=== PATIENT | male | born 1980 | race American Indian/Alaskan Native ===

== ENCOUNTER 2021-11-06 04:43 | Emergency (ER) | payer SELFPAY ==
[2021-11-06 06:07] LABS: Basophils # (Auto) 0.1 K/mm3 (0.0-0.1); Basophils % (Auto) 0.9 % (0.0-1.8); Eosinophils # (Auto) 0.1 K/mm3 (0.0-0.4); Eosinophils % (Auto) 1.3 % (0.0-4.3); Hematocrit 45.9 % (35.5-45.6); Hemoglobin 15.6 gm/dl (11.8-15.2); Lymphocytes # (Auto) 2.5 K/mm3 (1.2-5.4); Lymphocytes % (Auto) 25.8 % (13.4-35.0); Mean Corpuscular HGB Conc 34 % (32-34); Mean Corpuscular Volume 100 fl (84-94); Monocytes # (Auto) 0.8 K/mm3 (0.0-0.8); Monocytes % (Auto) 7.8 % (0.0-7.3); Platelet Count 279 K/mm3 (140-440); Red Cell Distribution Width 13.7 % (13.2-15.2)
[2021-11-06 06:23] LABS: Alanine Aminotransferase 34 units/L (7-56); Albumin 4.8 g/dL (3.9-5); BUN/Creatinine Ratio 13; Blood Urea Nitrogen 12 mg/dL (9-20); Calcium 9.8 mg/dL (8.4-10.2); Hemolysis Index 43
[2021-11-06] MEDS ORDERED: fentaNYL 100 MCG/2 ML INJ IV ONE (06:52)
[2021-11-06] MEDS ORDERED: ONDANSETRON 4 MG/2 ML INJ IV ONE (06:52)
[2021-11-06] MEDS ORDERED: SODIUM CHLORIDE 0.9% 1000 ML 1,000 ML IV ONE (06:52)
[2021-11-06] MEDS ORDERED: FAMOTIDINE 20 MG/2 ML INJ IV ONE (06:52)
[2021-11-06] MEDS ORDERED: LORazepam 2 MG/ML VIAL IV PRN (06:54)
[2021-11-06] MEDS ORDERED: MAGNESIUM SULFATE 2 GM/50 ML BAG IV ONE (06:55)
--- NOTE | 2021-11-06 06:58 | Emergency Department Report ---
HPI - General Chief Complaint: Abdominal Pain Time Seen by Provider: 11/06/21 06:48 - HPI HPI: Room 5 The patient is a 40-year-old male presenting with a chief complaint of abdominal pain. Patient admits to consuming approximately half a gallon of alcohol daily. Patient states for the past 3 days she has had a constant sharp pain in his right upper quadrant. Patient has nausea vomiting but denies diarrhea. Patient denies history of fever. Patient currently gets his abdominal pain a score of 8/10 ED Past Medical Hx - Past Medical History Previous Medical History?: Yes Additional medical history: Pancreatitis. ETOH abuse. seizures from ETOH withdrawal - Surgical History Past Surgical History?: No - Family History Family history: no significant - Social History Smoking Status: Current Every Day Smoker (Vape) Substance Use Type: None (Denies illicit drug use), Alcohol (1/2 gallon of alcohol daily) ED Review of Systems ROS: Stated complaint: EMESIS Other details as noted in HPI Constitutional: denies: fever Eyes: denies: eye pain ENT: denies: throat pain Respiratory: no symptoms reported Cardiovascular: denies: chest pain Endocrine: no symptoms reported Gastrointestinal: abdominal pain, nausea, vomiting. denies: diarrhea Genitourinary: denies: dysuria Musculoskeletal: denies: back pain Neurological: denies: headache Physical Exam - Physical Exam Vital Signs: Vital Signs 11/06/21 11/06/21 05:40 06:05 Temperature 98.1 F Pulse Rate 96 H 91 H Respiratory 18 15 Rate Blood Pressure 200/141 Blood Pressure 187/121 [Left] O2 Sat by Pulse 97 97 Oximetry Physical Exam: GENERAL: The patient is well-developed well-nourished male lying on stretcher not appearing to be in acute distress. [] HEENT: Normocephalic. Atraumatic. Extraocular motions are intact. Patient has moist mucous membranes. NECK: Supple. Trachea midline CHEST/LUNGS: Clear to auscultation. There is no respiratory distress noted. HEART/CARDIOVASCULAR: Regular. There is no tachycardia. There is no gallop rub or murmur. ABDOMEN: Abdomen is soft, with tenderness to palpation in the right upper quadrant and right lower quadrant. The remainder of the abdomen is soft and nontender to palpation. There is no rebound or guarding. Patient has normal bowel sounds. There is no abdominal distention. SKIN: There is no rash. There is no edema. There is no diaphoresis. NEURO: The patient is awake, alert, and oriented. The patient is cooperative. The patient has no focal neurologic deficits. The patient has normal speech. GCS 15 MUSCULOSKELETAL: There is no evidence of acute injury. ED Course Vital Signs 11/06/21 11/06/21 05:40 06:05 Temperature 98.1 F Pulse Rate 96 H 91 H Respiratory 18 15 Rate Blood Pressure 200/141 Blood Pressure 187/121 [Left] O2 Sat by Pulse 97 97 Oximetry ED Medical Decision Making - Lab Data Result diagrams: 11/06/21 05:48 11/06/21 05:48 Laboratory Tests 11/06/21 11/06/21 11/06/21 05:48 05:48 07:55 WBC 9.7 RBC 4.60 Hgb 15.6 H Hct 45.9 H MCV 100 H MCH 34 H MCHC 34 RDW 13.7 Plt Count 279 Lymph % (Auto) 25.8 [place] % (Auto) 7.8 H Eos % (Auto) 1.3 Baso % (Auto) 0.9 Lymph # (Auto) 2.5 [place] # (Auto) 0.8 Eos # (Auto) 0.1 Baso # (Auto) 0.1 Seg Neutrophils % 64.2 Seg Neutrophils # 6.2 Sodium 139 Potassium 4.5 Chloride 102.2 Carbon Dioxide 22 Anion Gap 19 BUN 12 Creatinine 0.9 Estimated GFR > 60 BUN/Creatinine Ratio 13 Glucose 108 H Calcium 9.8 Total Bilirubin 0.30 AST 27 ALT 34 Alkaline Phosphatase 115 Total Protein 7.6 Albumin 4.8 Albumin/Globulin Ratio 1.7 Lipase 21 Urine Color Straw Urine Turbidity Clear Urine pH 6.0 Ur Specific [place] 1.013 Urine Protein <15 mg/dl Urine Glucose (UA) Neg Urine Ketones Neg Urine Blood Sm Urine Nitrite Neg Urine Bilirubin Neg Urine Urobilinogen < 2.0 Ur Leukocyte Esterase Neg Urine WBC (Auto) < 1.0 Urine RBC (Auto) 3.0 U Epithel Cells (Auto) < 1.0 - Radiology Data Radiology results: report reviewed (CT abdomen pelvis), image reviewed (CT abdomen pelvis) [facility] [address] [place] [address] Cat Scan Report Signed Patient: OSKAR NORTH MR#: [id number] : 1980 Acct:[id number] Age/Sex: 40 / M ADM Date: 11/06/21 Loc: ED Attending Dr: Ordering Physician: DARIA ROMERO MD Date of Service: 11/06/21 Procedure(s): CT abdomen pelvis w con Accession Number(s): [id number] cc: DARIA ROMERO MD CT ABDOMEN AND PELVIS WITH CONTRAST INDICATION / CLINICAL INFORMATION: Right-sided abdominal pain OMNI 300 100 ML. TECHNIQUE: Axial CT images were obtained through the abdomen and pelvis after 100 cc of Omnipaque 300 IV contrast. Sagittal and coronal reformatted images. All CT scans at this location are performed using CT dose reduction for ALARA by means of automated exposure control. COMPARISON: None available. FINDINGS: LOWER CHEST: No significant abnormality. LIVER: No significant abnormality. GALLBLADDER: No significant abnormality. BILE DUCTS: No significant abnormality. PANCREAS: No significant abnormality. SPLEEN: No significant abnormality. ADRENALS: No significant abnormality. RIGHT KIDNEY and URETER: No significant abnormality. LEFT KIDNEY and URETER: No significant abnormality. STOMACH and SMALL BOWEL: No significant abnormality. COLON: No significant abnormality. APPENDIX: No significant abnormality. PERITONEUM: No free fluid. No free air. No fluid collection. LYMPH NODES: No significant adenopathy. AORTA and ARTERIES: No significant abnormality. IVC and VEINS: No significant abnormality. URINARY BLADDER: No significant abnormality. REPRODUCTIVE ORGANS: No significant abnormality. ADDITIONAL FINDINGS: None. SKELETAL SYSTEM: No significant abnormality. IMPRESSION: No acute process is identified. No clear explanation for right abdominal pain. Signer Name: Jose De Jesus Medrano Jr, MD Signed: 11/06/2021 7:58 AM Workstation Name: [id number] Transcribed By: TTR Dictated By: JOSE DE JESUS MEDRANO JR, MD Electronically Authenticated By: JOSE DE JESUS MEDRANO JR, MD Signed Date/Time: 11/06/21 0758 DD/ 0754 TD/TT: - Differential Diagnosis Pancreatitis, alcoholic hepatitis, cholecystitis, peptic ulcer disease Critical care attestation.: If time is entered above; I have spent that time in minutes in the direct care of this critically ill patient, excluding procedure time. ED Disposition Clinical Impression: Acute abdominal pain, Alcoholism Disposition: [address] [place] [address] Is pt being admited?: No Does the pt Need Aspirin: No Condition: Stable Referrals: MARK RIOJAS MD [Primary Care Provider] - 3-5 Days Time of Disposition: 12:51 (Awaiting acceptance)
[2021-11-06] MEDS: LORazepam 2 MG/ML VIAL IV PRN ×4 (07:54→20:04)
[2021-11-06] MEDS: THIAMINE 100 MG, FOLIC ACID 1 MG, MULTIPLE VITAMIN INJ, ADULT 10 ML in SODIUM CHLORIDE ... IV ONE ×2 (07:54→08:47)
--- NOTE | 2021-11-06 08:02 | Cat Scan Report ---
CT ABDOMEN AND PELVIS WITH CONTRAST INDICATION / CLINICAL INFORMATION: Right-sided abdominal pain OMNI 300 100 ML. TECHNIQUE: Axial CT images were obtained through the abdomen and pelvis after 100 cc of Omnipaque 300 IV contras t. Sagittal and coronal reformatted images. All CT scans at this location are performed using CT dose reduction for ALARA by means of automated exposure control. COMPARISON: None available. FINDINGS: LOWER CHEST: No significant abnormality. LIVER: No significant abnormality. GALLBLADDER: No significant abnormality. BILE DUCTS: No significant abnormality. PANCREAS: No significant abnormality. SPLEEN: No significant abnormality. ADRENALS: No significant abnormality. RIGHT KIDNEY and URETER: No significant abnormality. LEFT KIDNEY and URETER: No significant abnormality. STOMACH and SMALL BOWEL: No significant abnormality. COLON: No significant abnormality. APPENDIX: No significant abnormality. PERITONEUM: No free fluid. No free air. No fluid collection. LYMPH NODES: No significant adenopathy. AORTA and ARTERIES: No significant abnormality. IVC and VEINS: No significant abnormality. URINARY BLADDER: No significant abnormality. REPRODUCTIVE ORGANS: No significant abnormality. ADDITIONAL FINDINGS: None. SKELETAL SYSTEM: No significant abnormality. IMPRESSION: No acute process is identified. No clear explanation for right abdominal pain. Signer Name: Jose De Jesus Medrano Jr, MD Signed: 11/06/2021 7:58 AM Workstation Name: [id number]
[2021-11-06 08:18] LABS: Bilirubin,Urine NEG (Negative); Blood,Urine SM (Negative); Color,Urine Straw (Yellow); Protein,Urine <15 mg/dL mg/dL (Negative); Urobilinogen,Urine < 2.0 mg/dL (<2.0); WBC,Urine < 1.0 /HPF (0.0-6.0)
--- NOTE | 2021-11-06 11:50 | Consultation ---
History of Present Illness - Reason for Consult Consult date: 11/06/21 Reason for consult: Alcohol withdrawal - History of Present Psychiatric Illness ED Note: The patient is a 40-year-old male presenting with a chief complaint of abdominal pain. Patient admits to consuming approximately half a gallon of alcohol daily. Patient states for the past 3 days she has had a constant sharp pain in his right upper quadrant. Patient has nausea vomiting but denies diarrhea. Patient denies history of fever. Patient currently gets his abdominal pain a score of 8/10. The patient is a 40 year old male with history of depression, anxiety, PTSD, and alcohol use disorder. In my encounter with the patient, he is presents with moderate tremor. 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 The patient states states he started using alcohol 3 years now; he reports multiple inpatient admissions for detox and rehab x3. When asking why he drinks, he states " I stay depressed, it used to be fun when I started but not anymore." He states he last used alcohol last night. The patient is actively withdrawing; he reports history of seizures. He denies any current suicidal/homicidal ideation and denies hallucinations. PAST PSYCHIATRIC HISTORY Diagnoses:Depression, Anxiety, PTSD, Alcohol use disorder Suicide attempts or Self-harm behavior: Denies Prior psychiatric hospitalizations: Yes Substance Abuse history:Alcohol Previous psychiatric medications tried: Unknown Outpatient treatment:unknown PAST MEDICAL HISTORY: none reported Family Psychiatric History: None reported or documented SOCIAL HISTORY Marital Status: Single Living Arrangements: Lives with sister Employment Status: Unemployed Access to guns/weapons: Denies Education: 8th grade History of Abuse: none reported Legal History: none reported REVIEW OF SYSTEMS Constitutional: Negative for weight loss ENT: Negative for stridor Respiratory: Negative for cough or hemoptysis All other systems reviewed and are negative MENTAL STATUS EXAMINATION General Appearance and Behavior: Age appropriate, good hygiene, wearing appropriate clothes, poor eye contact, cooperative polite with questioning. Cooperation: Participating/engaged, guarded Psychomotor Behavior: unremarkable and within normal limits Mood: depressed Affect and affective range: congruent with mood Thought Process: goal directed Thought Content: reality oriented Speech: Normal volume, Regular rate and rhythm, Intellectual Functioning: Average Suicidal Ideation: Denies Homicidal Ideation: Denies Hallucinations: Denies Delusions: None Impulse Control: Normal Insight and Judgment: Limited insight and judgment, Memory: Normal, Attention: Normal, Orientation: Alert, oriented, Assessment and Plan (1) Major depressive disorder (2) Alcohol use disorder Current Visit: Yes Status: Acute Treatment Continue [facility] protocol Sitter: Per primary Medical: Per primary Disposition: Recommend acute inpatient psychiatric treatment. Case staffed with Dr. Bailey Will follow. Thank you Medications and Allergies Medications and Allergies Allergies Allergy/AdvReac Type Severity Reaction Status Date / Time No Known Allergies Allergy Verified 11/06/21 06:56 Active Meds: Active Medications Lorazepam (Lorazepam 2 Mg/Ml Vial) 2 mg IV Q1HR PRN PRN Reason: CIWA-Ar 8-15 Last Admin: 11/06/21 07:54 Dose: 2 mg Lorazepam (Lorazepam 2 Mg/Ml Vial) 4 mg IV Q1HR PRN PRN Reason: CIWA-Ar 16-25 Lorazepam (Lorazepam 2 Mg/Ml Vial) 4 mg IV Q15MIN PRN PRN Reason: CIWA-Ar >25 Mental Status Exam - Vital signs Last Vital Signs Temp 98.1 F 11/06/21 05:40 Pulse 86 11/06/21 07:30 Resp 15 11/06/21 07:30 BP 154/102 11/06/21 07:47 Pulse Ox 97 11/06/21 07:47 Results Result Diagrams: 11/06/21 05:48 11/06/21 05:48 Abnormal lab results 11/06/21 11/06/21 Range/Units 05:48 05:48 Hgb 15.6 H (11.8-15.2) gm/dl Hct 45.9 H (35.5-45.6) % MCV 100 H (84-94) fl MCH 34 H (28-32) pg [place] % (Auto) 7.8 H (0.0-7.3) % Glucose 108 H (75-100) mg/dL All other labs normal.
[2021-11-07] MEDS: LORazepam 2 MG/ML VIAL IV PRN ×6 (01:48→13:29)
[2021-11-07] MEDS ORDERED: ACETAMINOPHEN 325 MG TAB PO ONE (09:56)
--- NOTE | 2021-11-07 13:10 | Progress Note ---
Subjective - Reason for Consult Consult date: 11/07/21 Reason for consult: alcohol withdrawal - Chief Complaint Chief complaint: The patient was seen today. He states he is still hurting. No tremors noted. The patient denies any current suicidal/homicidal ideation and denies hallucinations. REVIEW OF SYSTEMS Constitutional: Negative for weight loss ENT: Negative for stridor Respiratory: Negative for cough or hemoptysis All other systems reviewed and are negative MENTAL STATUS EXAMINATION General Appearance and Behavior: Age appropriate, good hygiene, wearing appropriate clothes, poor eye contact, cooperative polite with questioning. Cooperation: Participating/engaged, guarded Psychomotor Behavior: unremarkable and within normal limits Mood: OK Affect and affective range: congruent with mood Thought Process: goal directed Thought Content: reality oriented Speech: Normal volume, Regular rate and rhythm, Intellectual Functioning: Average Suicidal Ideation: Denies Homicidal Ideation: Denies Hallucinations: Denies Delusions: None Impulse Control: Normal Insight and Judgment: Limited insight and judgment, Memory: Normal, Attention: Normal, Orientation: Alert, oriented, Assessment and Plan (1) Major depressive disorder (2) Alcohol use disorder Current Visit: Yes Status: Acute Treatment Sitter: Per primary Medical: Per primary Disposition: Do not recommend acute inpatient psychiatric treatment. risk assessor will provide patient with psychiatric inpatient resources. Case staffed with Dr. Bailey Will sign off. Thank you Medications and Allergies Mental Status Exam - Vital signs Last Vital Signs Temp 98.1 F 11/06/21 05:40 Pulse 86 11/07/21 00:16 Resp 16 11/07/21 10:15 BP 144/97 11/07/21 10:15 Pulse Ox 96 11/07/21 10:15
[2021-11-07 16:03] VITALS: BP 132/65
== END 2021-11-07 17:41 | disposition left against medical advice (07) ==
LOC: ED 04:43
DX: R10.11 Right upper quadrant pain (principal); F10.20 Alcohol dependence, uncomplicated; F17.200 Nicotine dependence, unspecified, uncomplicated
CPT/HCPCS: 36415; 74177; 80053; 81001; 83690; 85025; 96365; 96375; 96376; 99284; J2060; J2405; J3010; J3411; J3475; J3490; J7030; Q9967; 96361

== ENCOUNTER 2021-11-07 20:00 | Emergency (ER) | payer SELFPAY ==
[2021-11-07] MEDS ORDERED: SODIUM CHLORIDE 0.9% 1000 ML 1,000 ML IV ONE (20:52)
[2021-11-07 21:20] LABS: Basophils # (Auto) 0.1 K/mm3 (0.0-0.1); Basophils % (Auto) 0.6 % (0.0-1.8); Eosinophils # (Auto) 0.1 K/mm3 (0.0-0.4); Eosinophils % (Auto) 1.3 % (0.0-4.3); Hemoglobin 16.1 gm/dl (11.8-15.2); Lymphocytes # (Auto) 3.3 K/mm3 (1.2-5.4); Mean Corpuscular HGB Conc 34 % (32-34); Mean Corpuscular Volume 101 fl (84-94); Monocytes # (Auto) 0.7 K/mm3 (0.0-0.8); Monocytes % (Auto) 7.4 % (0.0-7.3); Platelet Count 280 K/mm3 (140-440); Red Blood Count 4.77 M/mm3 (3.65-5.03); Red Cell Distribution Width 13.4 % (13.2-15.2)
[2021-11-07 21:37] LABS: Alanine Aminotransferase 29 units/L (7-56); Albumin 4.4 g/dL (3.9-5); BUN/Creatinine Ratio 14; Blood Urea Nitrogen 14 mg/dL (9-20); Calcium 9.4 mg/dL (8.4-10.2); Hemolysis Index 8
--- NOTE | 2021-11-07 23:05 | Emergency Department Report ---
ED Psych HPI - General Chief Complaint: Psych Stated Complaint: MH/ETOH Time Seen by Provider: 11/07/21 20:52 Source: EMS Mode of arrival: Ambulatory - History of Present Illness Initial Comments: pt was seen at [facility] ED and discharged x2 in the last 24 hours, ETOH, pt now stating SI denies HI Complaint: suicidal ideation, feels depressed -: days(s) Associated Psychiatric Symptoms: suicidal ideation History of same: Yes Quality: constant Worsens With: achohol Context: recent alcohol abuse If Self Harm: admits thoughts of - Related Data Previous Rx's Medication Instructions Recorded Last Taken Type Sertraline [Zoloft] 50 mg PO QDAY #30 11/11/21 Unknown Rx hydrOXYzine PAMOATE [Vistaril] 50 mg PO BID PRN #60 capsule 11/11/21 Unknown Rx Allergies Allergy/AdvReac Type Severity Reaction Status Date / Time No Known Allergies Allergy Verified 11/06/21 06:56 ED Review of Systems ROS: Stated complaint: MH/ETOH Other details as noted in HPI Constitutional: denies: chills, fever Eyes: denies: eye pain, eye discharge, vision change ENT: denies: ear pain, throat pain Respiratory: denies: cough, shortness of breath, wheezing Cardiovascular: denies: chest pain, palpitations Endocrine: no symptoms reported Gastrointestinal: denies: abdominal pain, nausea, diarrhea Genitourinary: denies: urgency, dysuria Musculoskeletal: denies: back pain, joint swelling, arthralgia Skin: denies: rash, lesions Neurological: denies: headache, weakness, paresthesias Psychiatric: denies: anxiety, depression Hematological/Lymphatic: denies: easy bleeding, easy bruising ED Past Medical Hx - Past Medical History Previous Medical History?: Yes Additional medical history: Pancreatitis. ETOH abuse. seizures from ETOH withdrawal - Social History Smoking Status: Current Every Day Smoker Substance Use Type: Alcohol - Medications Home Medications: Home Medications Medication Instructions Recorded Confirmed Last Taken Type Sertraline [Zoloft] 50 mg PO QDAY #30 11/11/21 Unknown Rx hydrOXYzine PAMOATE [Vistaril] 50 mg PO BID PRN #60 capsule 11/11/21 Unknown Rx ED Physical Exam - General Limitations: No Limitations General appearance: alert, appears intoxicated - Head Head exam: Present: atraumatic, normocephalic - Eye Eye exam: Present: normal appearance - ENT ENT exam: Present: mucous membranes moist - Neck Neck exam: Present: normal inspection - Respiratory Respiratory exam: Present: normal lung sounds bilaterally. Absent: respiratory distress - Cardiovascular Cardiovascular Exam: Present: regular rate, tachycardia. Absent: systolic murmur, diastolic murmur, rubs, gallop - GI/Abdominal GI/Abdominal exam: Present: soft, normal bowel sounds - Rectal Rectal exam: Present: deferred - Extremities Exam Extremities exam: Present: normal inspection - Back Exam Back exam: Present: normal inspection - Neurological Exam Neurological exam: Present: alert, oriented X3 - Psychiatric Psychiatric exam: Present: depressed - Skin Skin exam: Present: warm, dry, intact, normal color. Absent: rash ED Course Vital Signs 11/07/21 11/07/21 11/07/21 20:17 21:01 21:15 Temperature 99.1 F Pulse Rate 124 H 109 H 100 H Respiratory 18 19 21 Rate Blood Pressure 149/106 135/99 121/89 Blood Pressure 121/89 [Left] O2 Sat by Pulse 98 95 96 Oximetry 11/07/21 11/07/21 11/07/21 21:31 21:45 22:01 Temperature Pulse Rate 99 H 93 H 93 H Respiratory 23 21 21 Rate Blood Pressure 124/91 128/91 125/85 Blood Pressure [Left] O2 Sat by Pulse 93 95 94 Oximetry 11/07/21 11/07/21 11/07/21 22:15 22:31 22:45 Temperature Pulse Rate 99 H 96 H 93 H Respiratory 19 20 19 Rate Blood Pressure 130/88 135/88 137/99 Blood Pressure [Left] O2 Sat by Pulse 94 95 97 Oximetry 11/07/21 11/07/21 11/07/21 23:01 23:15 23:31 Temperature Pulse Rate 91 H 94 H 98 H Respiratory 17 17 17 Rate Blood Pressure 147/95 151/85 122/77 Blood Pressure [Left] O2 Sat by Pulse 96 96 95 Oximetry 11/07/21 11/08/21 11/08/21 23:45 00:01 00:15 Temperature Pulse Rate 99 H 97 H 96 H Respiratory 16 17 21 Rate Blood Pressure 131/76 116/76 117/81 Blood Pressure [Left] O2 Sat by Pulse 95 95 Oximetry 11/08/21 11/08/21 11/08/21 00:31 00:52 01:06 Temperature Pulse Rate 97 H Respiratory 15 Rate Blood Pressure 131/92 124/97 141/90 Blood Pressure [Left] O2 Sat by Pulse Oximetry 11/08/21 11/08/21 11/08/21 01:21 01:36 01:51 Temperature Pulse Rate Respiratory Rate Blood Pressure 134/86 130/82 121/85 Blood Pressure [Left] O2 Sat by Pulse Oximetry 11/08/21 11/08/21 11/08/21 02:06 02:21 02:36 Temperature Pulse Rate Respiratory Rate Blood Pressure 127/83 140/91 123/90 Blood Pressure [Left] O2 Sat by Pulse Oximetry 11/08/21 11/08/21 11/08/21 02:51 06:00 06:16 Temperature Pulse Rate 106 H 99 H Respiratory 13 18 Rate Blood Pressure 126/83 160/115 88/66 Blood Pressure [Left] O2 Sat by Pulse 97 94 Oximetry 11/08/21 11/08/21 11/08/21 06:30 06:46 07:00 Temperature Pulse Rate 101 H 106 H 103 H Respiratory 16 16 15 Rate Blood Pressure 88/66 88/66 88/66 Blood Pressure [Left] O2 Sat by Pulse 94 94 94 Oximetry 11/08/21 11/08/21 11/08/21 07:16 07:30 07:46 Temperature Pulse Rate 103 H 101 H 86 Respiratory 19 16 15 Rate Blood Pressure 147/103 147/103 147/103 Blood Pressure [Left] O2 Sat by Pulse 93 95 96 Oximetry 11/08/21 11/08/21 11/08/21 08:00 08:16 08:30 Temperature Pulse Rate 92 H 103 H 102 H Respiratory 19 17 17 Rate Blood Pressure 124/64 124/64 124/64 Blood Pressure [Left] O2 Sat by Pulse 94 93 93 Oximetry 11/08/21 11/08/21 11/08/21 08:46 09:00 09:16 Temperature Pulse Rate Respiratory 13 16 18 Rate Blood Pressure 124/64 161/115 161/115 Blood Pressure [Left] O2 Sat by Pulse 94 96 93 Oximetry 11/08/21 11/08/21 11/08/21 09:30 09:46 10:00 Temperature Pulse Rate Respiratory 21 10 L 13 Rate Blood Pressure 161/115 161/115 163/134 Blood Pressure [Left] O2 Sat by Pulse 94 97 97 Oximetry 11/08/21 11/08/21 11/08/21 10:16 10:30 10:46 Temperature Pulse Rate Respiratory 11 L 17 14 Rate Blood Pressure 163/134 163/134 163/134 Blood Pressure [Left] O2 Sat by Pulse 95 95 92 Oximetry 11/08/21 11/08/21 11/08/21 11:00 11:16 11:30 Temperature Pulse Rate Respiratory 14 Rate Blood Pressure 153/78 153/78 153/78 Blood Pressure [Left] O2 Sat by Pulse 93 94 95 Oximetry 11/08/21 11/08/21 11/08/21 11:49 12:00 12:16 Temperature Pulse Rate 96 H 105 H Respiratory 21 Rate Blood Pressure 153/78 134/112 134/112 Blood Pressure [Left] O2 Sat by Pulse 92 98 Oximetry 11/08/21 11/08/21 11/08/21 12:36 12:37 12:46 Temperature Pulse Rate 113 H 117 H Respiratory 18 Rate Blood Pressure 160/99 160/99 Blood Pressure 120/79 [Left] O2 Sat by Pulse 95 99 92 Oximetry 11/08/21 11/08/21 11/08/21 13:00 13:18 13:30 Temperature Pulse Rate 99 H Respiratory 20 Rate Blood Pressure 147/88 147/88 109/77 Blood Pressure [Left] O2 Sat by Pulse 90 89 87 Oximetry 11/08/21 11/08/21 11/08/21 13:52 14:01 14:16 Temperature Pulse Rate Respiratory Rate Blood Pressure 109/77 109/77 109/77 Blood Pressure [Left] O2 Sat by Pulse 99 60 L Oximetry 11/08/21 11/08/21 11/08/21 14:30 14:54 15:00 Temperature Pulse Rate Respiratory Rate Blood Pressure 109/77 109/77 109/77 Blood Pressure [Left] O2 Sat by Pulse 71 L Oximetry 11/08/21 11/08/21 11/08/21 15:15 17:35 17:46 Temperature Pulse Rate 95 H Respiratory 14 Rate Blood Pressure 109/77 109/77 Blood Pressure [Left] O2 Sat by Pulse 94 94 Oximetry 11/08/21 11/08/21 11/08/21 18:00 18:30 18:46 Temperature Pulse Rate 94 H 97 H Respiratory 14 21 Rate Blood Pressure 134/81 134/81 134/81 Blood Pressure [Left] O2 Sat by Pulse 94 96 96 Oximetry 11/08/21 11/08/21 11/08/21 19:00 19:16 19:30 Temperature Pulse Rate Respiratory Rate Blood Pressure 134/81 134/81 134/81 Blood Pressure [Left] O2 Sat by Pulse 94 94 94 Oximetry 11/08/21 11/08/21 11/08/21 19:46 20:00 20:16 Temperature Pulse Rate Respiratory Rate Blood Pressure 134/81 134/81 134/81 Blood Pressure [Left] O2 Sat by Pulse 94 94 94 Oximetry 11/08/21 11/08/21 11/08/21 20:30 20:46 21:00 Temperature Pulse Rate Respiratory Rate Blood Pressure 134/81 134/81 95/46 Blood Pressure [Left] O2 Sat by Pulse 92 94 94 Oximetry 11/08/21 11/08/21 11/08/21 21:16 21:30 21:46 Temperature Pulse Rate Respiratory Rate Blood Pressure Blood Pressure [Left] O2 Sat by Pulse 93 95 95 Oximetry 11/08/21 11/08/21 11/08/21 22:00 22:16 22:30 Temperature Pulse Rate Respiratory Rate Blood Pressure Blood Pressure [Left] O2 Sat by Pulse 95 96 94 Oximetry 11/08/21 11/08/21 11/08/21 22:46 23:00 23:16 Temperature Pulse Rate Respiratory Rate Blood Pressure Blood Pressure [Left] O2 Sat by Pulse 88 94 94 Oximetry 11/08/21 11/08/21 11/09/21 23:30 23:46 00:00 Temperature Pulse Rate Respiratory Rate Blood Pressure Blood Pressure [Left] O2 Sat by Pulse 94 92 95 Oximetry 11/09/21 11/09/21 11/09/21 00:16 00:30 00:46 Temperature Pulse Rate Respiratory Rate Blood Pressure Blood Pressure [Left] O2 Sat by Pulse 92 94 94 Oximetry 11/09/21 11/09/21 11/09/21 01:00 01:16 01:30 Temperature Pulse Rate Respiratory Rate Blood Pressure Blood Pressure [Left] O2 Sat by Pulse 95 92 92 Oximetry 11/09/21 11/09/21 11/09/21 01:46 02:00 02:16 Temperature Pulse Rate Respiratory Rate Blood Pressure 44/18 44/18 Blood Pressure [Left] O2 Sat by Pulse 96 92 96 Oximetry 11/09/21 11/09/21 11/09/21 02:30 02:46 03:00 Temperature Pulse Rate Respiratory Rate Blood Pressure 44/18 44/18 44/18 Blood Pressure [Left] O2 Sat by Pulse 95 94 90 Oximetry 11/09/21 11/09/21 11/09/21 03:16 03:30 03:46 Temperature Pulse Rate Respiratory Rate Blood Pressure 44/18 44/18 44/18 Blood Pressure [Left] O2 Sat by Pulse 92 94 93 Oximetry 11/09/21 11/09/21 11/09/21 03:57 04:00 04:02 Temperature 98.3 F Pulse Rate 80 Respiratory 16 Rate Blood Pressure 148/97 Blood Pressure 109/88 [Left] O2 Sat by Pulse 98 96 98 Oximetry 11/09/21 11/09/21 11/09/21 04:16 04:30 04:46 Temperature Pulse Rate Respiratory Rate Blood Pressure 148/97 148/97 148/97 Blood Pressure [Left] O2 Sat by Pulse 92 94 95 Oximetry 11/09/21 11/09/21 11/09/21 05:00 05:16 05:30 Temperature Pulse Rate Respiratory Rate Blood Pressure 156/105 156/105 156/105 Blood Pressure [Left] O2 Sat by Pulse 96 89 94 Oximetry 11/09/21 11/09/21 11/09/21 05:46 06:00 06:16 Temperature Pulse Rate Respiratory Rate Blood Pressure 156/105 146/109 146/109 Blood Pressure [Left] O2 Sat by Pulse 88 94 94 Oximetry 11/09/21 11/09/21 11/09/21 06:30 06:46 06:55 Temperature 98.6 F Pulse Rate 80 Respiratory 16 Rate Blood Pressure 146/109 146/109 Blood Pressure 134/88 [Left] O2 Sat by Pulse 89 94 97 Oximetry 11/09/21 11/10/21 11/10/21 20:35 03:09 09:40 Temperature 98.6 F 97.8 F 97.2 F L Pulse Rate 117 H 89 70 Respiratory 18 18 16 Rate Blood Pressure Blood Pressure 154/119 149/111 121/79 [Left] O2 Sat by Pulse 95 95 100 Oximetry 11/10/21 11/11/21 11/11/21 20:22 06:04 09:03 Temperature Pulse Rate 100 H Respiratory 18 18 Rate Blood Pressure Blood Pressure 144/115 [Left] O2 Sat by Pulse 100 98 Oximetry 11/11/21 11:59 Temperature 98.6 F Pulse Rate 87 Respiratory 20 Rate Blood Pressure Blood Pressure 160/88 [Left] O2 Sat by Pulse 98 Oximetry ED Medical Decision Making - Lab Data Result diagrams: 11/07/21 21:06 11/07/21 21:06 Critical care attestation.: If time is entered above; I have spent that time in minutes in the direct care of this critically ill patient, excluding procedure time. ED Disposition Clinical Impression: Alcohol abuse Depression Qualifiers: Depression Type: unspecified Qualified Code(s): F32.A - Depression, unspecified Disposition: 01 HOME / SELF CARE / HOMELESS Is pt being admited?: No Does the pt Need Aspirin: No Condition: Stable Instructions: Alcohol Use Disorder, Alcohol Abuse and Dependence Information, Adult, Living With Depression, Substance Use Disorder and Mental Illness, Alcohol Abuse and Nutrition Additional Instructions: In case of an emergency, please contact the following numbers: [place] Crisis and Access Line: Number: Crisis Text Line: (Text START) Number: 893546 Suicide Prevention Line: Number: Emergency Number: 911 SUBSTANCE ABUSE PROGRAMS: [facility]: Location: [place], [place] [employer]! Address: [address] [place] [address] [facility] Recovery: Address: [address] [place] [address] [facility] Rehabilitation: Address: [address] [place] [address] [facility] Community: Address: [address] [place] [address] [facility] Address: [address] [place] [address]. Please contact above numbers to attempt placement into free based program. Medicaid Programs: [facility]: Address: [address] [place] [address] [facility]: Address: [address] [place] [id number] Professional and Agency Contacts To help [facility] (27/01) [place] Crisis Line: Suicide Prevention Line: Crisis Text Line: Text START to 905253 Emergency: 911 Outpatient COMMUNITY Behavioral Health Resources: MEL[facility]OR[place]: [facility] [address] [place], [place] [address] [place]: [facility] [address] [place] [address] Friday thru Friday - 8am - 5pm Call to schedule an assessment for mental health and substance abuse programs [facility] Address: [address] [place] [address] Friday thru Friday- 7am-2pm [facility] Address: [address] [place] [address] Friday thru Friday: 8:30AM-5PM OUTPATIENT MENTAL HEALTH RESOURCES [facility], [facility] Kaden Dorado MD: [address] [place] [address], [address] [facility] [address] [place] [address] [place] [address] [facility]: [facility] [address] [place] [address] [place] [address] [phone] [facility]: [facility] Healthcare: [address] [place] [address] [address] [place] [address] [place] [address] [facility] [address] [facility]: Bradley Lopez MD: [address] [facility] [address] [facility] [address] [facility]: [address] [place] [address] [phone] [place] CRISIS AND ACCESS LINE: Prescriptions: hydrOXYzine PAMOATE [Vistaril] 50 mg PO BID PRN #60 capsule PRN Reason: Anxiety Sertraline [Zoloft] 50 mg PO QDAY #30 Referrals: MARK RIOJAS MD [Primary Care Provider] - 3-5 Days
[2021-11-08] MEDS ORDERED: LORazepam 2 MG/ML VIAL IV PRN ×2 (05:48)
[2021-11-08 08:18] LABS: Bilirubin,Urine NEG (Negative); Blood,Urine SM (Negative); Color,Urine Yellow (Yellow); Mucus,Urine FEW /HPF; Protein,Urine <15 mg/dL mg/dL (Negative); Urobilinogen,Urine < 2.0 mg/dL (<2.0); WBC,Urine < 1.0 /HPF (0.0-6.0)
[2021-11-08 08:24] LABS: Amphetamine Screen,Urine Negative; Benzodiazepines Screen,Urine Negative; Cocaine Screen,Urine Negative; Methadone Screen,Urine Negative; Opiate Screen,Urine Negative
[2021-11-08 08:45] LABS: Cannabinoid Screen,Urine Positive
--- NOTE | 2021-11-08 09:52 | Consultation ---
History of Present Illness - Reason for Consult Consult date: 11/08/21 Reason for consult: suicidal - History of Present Psychiatric Illness The patient is a 40 year old male with depression, anxiety, PTSD, and alcohol use disorder who present to the ED with suicidal ideation. The patient was discharged yesterday. He states he stated using alcohol post discharge and h aving suicidal ideation " I want to kill myself," he has no plan. He denies hallucinations. PAST PSYCHIATRIC HISTORY Diagnoses:Depression, Anxiety, PTSD, Alcohol use disorder Suicide attempts or Self-harm behavior: Denies Prior psychiatric hospitalizations: Yes Substance Abuse history:Alcohol Previous psychiatric medications tried: Unknown Outpatient treatment:unknown PAST MEDICAL HISTORY: none reported Family Psychiatric History: None reported or documented SOCIAL HISTORY Marital Status: Single Living Arrangements: Lives with sister Employment Status: Unemployed Access to guns/weapons: Denies Education: 8th grade History of Abuse: none reported Legal History: none reported REVIEW OF SYSTEMS Constitutional: Negative for weight loss ENT: Negative for stridor Respiratory: Negative for cough or hemoptysis All other systems reviewed and are negative MENTAL STATUS EXAMINATION General Appearance and Behavior: Age appropriate, good hygiene, wearing appropriate clothes, poor eye contact, cooperative polite with questioning. Cooperation: Participating/engaged, guarded Psychomotor Behavior: unremarkable and within normal limits Mood: Depressed Affect and affective range: congruent with mood Thought Process: Goal directed Thought Content: Suicidal Speech: Normal volume, Regular rate and rhythm, Intellectual Functioning: Average Suicidal Ideation: Yes Homicidal Ideation: Denies Hallucinations: Denies Delusions: None Impulse Control: Normal Insight and Judgment: Limited insight and judgment, Memory: Normal, Attention: Normal, Orientation: Alert, oriented, Assessment and Plan (1) Major depressive disorder (2) Alcohol use disorder Current Visit: Yes Status: Acute Treatment 1013 Start [id number] po BID Continue CIWA protocol Sitter: Per primary Medical: Per primary Disposition: Recommend acute inpatient psychiatric treatment. Case staffed with Dr. Bailey Will follow. Thank you Medications and Allergies Medications and Allergies Allergies Allergy/AdvReac Type Severity Reaction Status Date / Time No Known Allergies Allergy Verified 11/06/21 06:56 Active Meds: Active Medications Lorazepam (Lorazepam 2 Mg/Ml Vial) 2 mg IV Q1H PRN PRN Reason: CIWA-Ar 8-15 Lorazepam (Lorazepam 2 Mg/Ml Vial) 4 mg IV Q1H PRN PRN Reason: CIWA-Ar 16-25 Lorazepam (Lorazepam 2 Mg/Ml Vial) 4 mg IV Q15MIN PRN PRN Reason: CIWA-Ar >25 Mental Status Exam - Vital signs Last Vital Signs Temp 99.1 F 11/07/21 20:17 Pulse 106 H 11/08/21 06:00 Resp 13 11/08/21 06:00 BP 160/115 11/08/21 06:00 Pulse Ox 97 11/08/21 06:00 Results Result Diagrams: 11/07/21 21:06 11/07/21 21:06 Abnormal lab results 11/07/21 11/07/21 11/07/21 Range/Units 21:06 21:06 21:06 Hgb 16.1 H (11.8-15.2) gm/dl Hct 48.0 H (35.5-45.6) % MCV 101 H (84-94) fl MCH 34 H (28-32) pg [place] % (Auto) 7.4 H (0.0-7.3) % Potassium 3.4 L D (3.6-5.0) mmol/L Glucose 115 H (75-100) mg/dL Plasma/Serum Alcohol 0.25 H (0-0.07) % All other labs normal.
[2021-11-08] MEDS ORDERED: ONDANSETRON 4 MG ODT TAB PO PRN (12:01)
[2021-11-08] MEDS: LORazepam 2 MG/ML VIAL IV PRN ×2 (12:11→13:53)
[2021-11-08] MEDS: GABAPENTIN 100 MG CAP PO SCH ×2 (12:12→23:55)
[2021-11-08] MEDS ORDERED: POTASSIUM CHLORIDE ER 20 MEQ TAB PO ONE (12:44)
--- NOTE | 2021-11-08 12:46 | Event Note ---
Date: 11/08/21 The patient was evaluated in the emergency department for symptoms described in the history of present illness. He/she was evaluated in the context of the global COVID-19 pandemic, which necessitated consideration that the patient might be at risk for infection with the virus that causes COVID-19. Institutional protocols and algorithms that pertain to the evaluation of patients at risk for COVID-19 are in a state of rapid change based on information released by regulatory bodies including the CDC and federal and state organizations. These policies and algorithms were followed during the patient's care in the emergency department. Please note that these policies, procedures and recommendations changed on a rapid basis. Laboratory studies, vital signs, nursing documentation, ER documentation, and psychiatric documentation are reviewed and appreciated. Nursing team reports no acute events this morning or concerns. The patient is awake and ambulating and is mildly anxious. He is currently on the alcohol withdrawal protocol. Tachycardia likely secondary to mild anxiety, dehydration, as well as mild alcohol withdrawal. He has not had any seizures while here in the emergency room. Oral potassium repletion has been ordered. Multivitamins have been ordered. Have requested that the lab add on Tylenol and aspirin level. We will follow these up The patient was deemed medically suitable for psychiatric disposition and placement during his initial ER evaluation. The patient continues to remain medically suitable for psychiatric placement and disposition. He is currently pending psychiatric placement. Vital Signs 11/07/21 11/07/21 11/07/21 20:17 21:01 21:15 Temperature 99.1 F Pulse Rate 124 H 109 H 100 H Respiratory 18 19 21 Rate Blood Pressure 149/106 135/99 121/89 Blood Pressure 121/89 [Left] O2 Sat by Pulse 98 95 96 Oximetry 11/07/21 11/07/21 11/07/21 21:31 21:45 22:01 Temperature Pulse Rate 99 H 93 H 93 H Respiratory 23 21 21 Rate Blood Pressure 124/91 128/91 125/85 Blood Pressure [Left] O2 Sat by Pulse 93 95 94 Oximetry 11/07/21 11/07/21 11/07/21 22:15 22:31 22:45 Temperature Pulse Rate 99 H 96 H 93 H Respiratory 19 20 19 Rate Blood Pressure 130/88 135/88 137/99 Blood Pressure [Left] O2 Sat by Pulse 94 95 97 Oximetry 11/07/21 11/07/21 11/07/21 23:01 23:15 23:31 Temperature Pulse Rate 91 H 94 H 98 H Respiratory 17 17 17 Rate Blood Pressure 147/95 151/85 122/77 Blood Pressure [Left] O2 Sat by Pulse 96 96 95 Oximetry 11/07/21 11/08/21 11/08/21 23:45 00:01 00:15 Temperature Pulse Rate 99 H 97 H 96 H Respiratory 16 17 21 Rate Blood Pressure 131/76 116/76 117/81 Blood Pressure [Left] O2 Sat by Pulse 95 95 Oximetry 11/08/21 11/08/21 11/08/21 00:31 00:52 01:06 Temperature Pulse Rate 97 H Respiratory 15 Rate Blood Pressure 131/92 124/97 141/90 Blood Pressure [Left] O2 Sat by Pulse Oximetry 11/08/21 11/08/21 11/08/21 01:21 01:36 01:51 Temperature Pulse Rate Respiratory Rate Blood Pressure 134/86 130/82 121/85 Blood Pressure [Left] O2 Sat by Pulse Oximetry 11/08/21 11/08/21 11/08/21 02:06 02:21 02:36 Temperature Pulse Rate Respiratory Rate Blood Pressure 127/83 140/91 123/90 Blood Pressure [Left] O2 Sat by Pulse Oximetry 11/08/21 11/08/21 11/08/21 02:51 06:00 06:16 Temperature Pulse Rate 106 H 99 H Respiratory 13 18 Rate Blood Pressure 126/83 160/115 88/66 Blood Pressure [Left] O2 Sat by Pulse 97 94 Oximetry 11/08/21 11/08/21 11/08/21 06:30 06:46 07:00 Temperature Pulse Rate 101 H 106 H 103 H Respiratory 16 16 15 Rate Blood Pressure 88/66 88/66 88/66 Blood Pressure [Left] O2 Sat by Pulse 94 94 94 Oximetry 11/08/21 11/08/21 11/08/21 07:16 07:30 07:46 Temperature Pulse Rate 103 H 101 H 86 Respiratory 19 16 15 Rate Blood Pressure 147/103 147/103 147/103 Blood Pressure [Left] O2 Sat by Pulse 93 95 96 Oximetry 11/08/21 11/08/21 11/08/21 08:00 08:16 08:30 Temperature Pulse Rate 92 H 103 H 102 H Respiratory 19 17 17 Rate Blood Pressure 124/64 124/64 124/64 Blood Pressure [Left] O2 Sat by Pulse 94 93 93 Oximetry 11/08/21 11/08/21 11/08/21 08:46 09:00 09:16 Temperature Pulse Rate Respiratory 13 16 18 Rate Blood Pressure 124/64 161/115 161/115 Blood Pressure [Left] O2 Sat by Pulse 94 96 93 Oximetry 11/08/21 11/08/21 11/08/21 09:30 09:46 12:37 Temperature Pulse Rate 117 H Respiratory 21 10 L 18 Rate Blood Pressure 161/115 161/115 Blood Pressure 120/79 [Left] O2 Sat by Pulse 94 97 99 Oximetry Lab Results 11/07/21 11/07/21 11/07/21 Range/Units 21:06 21:06 21:06 WBC 9.6 (4.5-11.0) K/mm3 RBC 4.77 (3.65-5.03) M/mm3 Hgb 16.1 H (11.8-15.2) gm/dl Hct 48.0 H (35.5-45.6) % MCV 101 H (84-94) fl MCH 34 H (28-32) pg MCHC 34 (32-34) % RDW 13.4 (13.2-15.2) % Plt Count 280 (140-440) K/mm3 Lymph % (Auto) 34.0 (13.4-35.0) % Ray % (Auto) 7.4 H (0.0-7.3) % Eos % (Auto) 1.3 (0.0-4.3) % Baso % (Auto) 0.6 (0.0-1.8) % Lymph # (Auto) 3.3 (1.2-5.4) K/mm3 Ray # (Auto) 0.7 (0.0-0.8) K/mm3 Eos # (Auto) 0.1 (0.0-0.4) K/mm3 Baso # (Auto) 0.1 (0.0-0.1) K/mm3 Seg Neutrophils % 56.7 (40.0-70.0) % Seg Neutrophils # 5.5 (1.8-7.7) K/mm3 Sodium 140 (137-145) mmol/L Potassium 3.4 L D (3.6-5.0) mmol/L Chloride 103.3 (98-107) mmol/L Carbon Dioxide 23 (22-30) mmol/L Anion Gap 17 mmol/L BUN 14 (9-20) mg/dL Creatinine 1.0 (0.8-1.3) mg/dL Estimated GFR > 60 ml/min BUN/Creatinine Ratio 14 % Glucose 115 H (75-100) mg/dL Calcium 9.4 (8.4-10.2) mg/dL Total Bilirubin 0.30 (0.1-1.2) mg/dL AST 21 (5-40) units/L ALT 29 (7-56) units/L Alkaline Phosphatase 104 (35-129) units/L Total Protein 7.5 (6.3-8.2) g/dL Albumin 4.4 (3.9-5) g/dL Albumin/Globulin Ratio 1.4 % Urine Color (Yellow) Urine Turbidity (Clear) Urine pH (5.0-7.0) Ur Specific Stewart (1.003-1.030) Urine Protein (Negative) mg/dL Urine Glucose (UA) (Negative) mg/dL Urine Ketones (Negative) mg/dL Urine Blood (Negative) Urine Nitrite (Negative) Urine Bilirubin (Negative) Urine Urobilinogen (<2.0) mg/dL Ur Leukocyte Esterase (Negative) Urine WBC (Auto) (0.0-6.0) /HPF Urine RBC (Auto) (0.0-6.0) /HPF Urine Mucus /HPF Urine Opiates Screen Urine Methadone Screen Ur Barbiturates Screen Ur Phencyclidine Scrn Ur Amphetamines Screen U Benzodiazepines Scrn Urine Cocaine Screen U Marijuana (THC) Screen Drugs of Abuse Note Plasma/Serum Alcohol 0.25 H (0-0.07) % 11/08/21 11/08/21 Range/Units 08:03 08:03 WBC (4.5-11.0) K/mm3 RBC (3.65-5.03) M/mm3 Hgb (11.8-15.2) gm/dl Hct (35.5-45.6) % MCV (84-94) fl MCH (28-32) pg MCHC (32-34) % RDW (13.2-15.2) % Plt Count (140-440) K/mm3 Lymph % (Auto) (13.4-35.0) % Ray % (Auto) (0.0-7.3) % Eos % (Auto) (0.0-4.3) % Baso % (Auto) (0.0-1.8) % Lymph # (Auto) (1.2-5.4) K/mm3 Ray # (Auto) (0.0-0.8) K/mm3 Eos # (Auto) (0.0-0.4) K/mm3 Baso # (Auto) (0.0-0.1) K/mm3 Seg Neutrophils % (40.0-70.0) % Seg Neutrophils # (1.8-7.7) K/mm3 Sodium (137-145) mmol/L Potassium (3.6-5.0) mmol/L Chloride (98-107) mmol/L Carbon Dioxide (22-30) mmol/L Anion Gap mmol/L BUN (9-20) mg/dL Creatinine (0.8-1.3) mg/dL Estimated GFR ml/min BUN/Creatinine Ratio % Glucose (75-100) mg/dL Calcium (8.4-10.2) mg/dL Total Bilirubin (0.1-1.2) mg/dL AST (5-40) units/L ALT (7-56) units/L Alkaline Phosphatase (35-129) units/L Total Protein (6.3-8.2) g/dL Albumin (3.9-5) g/dL Albumin/Globulin Ratio % Urine Color Yellow (Yellow) Urine Turbidity Clear (Clear) Urine pH 5.0 (5.0-7.0) Ur Specific Stewart 1.018 (1.003-1.030) Urine Protein <15 mg/dl (Negative) mg/dL Urine Glucose (UA) Neg (Negative) mg/dL Urine Ketones Neg (Negative) mg/dL Urine Blood Sm (Negative) Urine Nitrite Neg (Negative) Urine Bilirubin Neg (Negative) Urine Urobilinogen < 2.0 (<2.0) mg/dL Ur Leukocyte Esterase Neg (Negative) Urine WBC (Auto) < 1.0 (0.0-6.0) /HPF Urine RBC (Auto) 2.0 (0.0-6.0) /HPF Urine Mucus Few /HPF Urine Opiates Screen Negative Urine Methadone Screen Negative Ur Barbiturates Screen Negative Ur Phencyclidine Scrn Negative Ur Amphetamines Screen Negative U Benzodiazepines Scrn Negative Urine Cocaine Screen Negative U Marijuana (THC) Screen Positive Drugs of Abuse Note Disclamer Plasma/Serum Alcohol (0-0.07) % Aspirin and Tylenol level negative. Informed by nursing team that patient has been likely consuming alcohol, which is discovered in his bag. I have informed nursing team that this patient is on a 1013, and therefore, all of his belongings should be locked up, and not accessible to the patient. Have also advised nursing team to escalate this to nursing leadership, charge rn and associate embalmer/funeral director, and vermarilin report, given this incident Patient clinically intoxicated, aggressive, and does not respond to verbal de- escalation techniques or show of force. As needed haloperidol and Ativan ordered. N.p.o. as of now, until he noel up.
[2021-11-08] MEDS ORDERED: HALOPERIDOL LACTATE 5 MG/1 ML INJ ONE (13:43)
[2021-11-08] MEDS: HALOPERIDOL LACTATE 5 MG/1 ML INJ IM PRN (13:52)
[2021-11-08] MEDS: FOLIC ACID 1 MG TAB PO SCH (13:53)
[2021-11-08] MEDS: MULTIVITAMINS ,THERAPEUTIC TAB PO SCH (13:54)
[2021-11-09] MEDS: LORazepam 2 MG/ML VIAL IV PRN ×3 (08:56→17:30)
[2021-11-09] MEDS: FOLIC ACID 1 MG TAB PO SCH (09:59)
[2021-11-09] MEDS: GABAPENTIN 100 MG CAP PO SCH (09:59)
[2021-11-09] MEDS: MULTIVITAMINS ,THERAPEUTIC TAB PO SCH (09:59)
[2021-11-09] MEDS: POTASSIUM CHLORIDE ER 20 MEQ TAB PO SCH (09:59)
--- NOTE | 2021-11-09 10:38 | Progress Note ---
Subjective - Reason for Consult Consult date: 11/09/21 Reason for consult: SI, alcohol - Chief Complaint Chief complaint: The patient was seen today. He still endorses SI, but denies a plan. He says "I just don't want to live anymore." The patient says he is depressed. He says he was on zoloft and been off for about 2 months. The patient says the medication worked when he was on it. REVIEW OF SYSTEMS Constitutional: Negative for weight loss ENT: Negative for stridor Respiratory: Negative for cough or hemoptysis All other systems reviewed and are negative MENTAL STATUS EXAMINATION General Appearance and Behavior: Age appropriate, good hygiene, wearing appropriate clothes, poor eye contact, cooperative polite with questioning. Cooperation: Participating/engaged, guarded Psychomotor Behavior: unremarkable and within normal limits Mood: Depressed Affect and affective range: congruent with mood Thought Process: Goal directed Thought Content: Suicidal, hopelessness Speech: Normal volume, Regular rate and rhythm, Intellectual Functioning: Average Suicidal Ideation: Yes Homicidal Ideation: Denies Hallucinations: Denies Delusions: None Impulse Control: Normal Insight and Judgment: Limited insight and judgment, Memory: Normal, Attention: Normal, Orientation: Alert, oriented, Assessment and Plan (1) Major depressive disorder (2) Alcohol use disorder Current Visit: Yes Status: Acute Treatment 1013 Start Zoloft 25mg po daily Continue CIWA protocol Sitter: Per primary Medical: Per primary Disposition: Recommend acute inpatient psychiatric treatment. Will follow. Thanks Case staffed with Dr. Bailey Mental Status Exam - Vital signs Last Vital Signs Temp 98.6 F 11/09/21 06:55 Pulse 80 11/09/21 06:55 Resp 16 11/09/21 06:55 BP 134/88 11/09/21 06:55 Pulse Ox 97 11/09/21 06:55
[2021-11-09] MEDS ORDERED: FLUoxetine 20 MG CAP PO SCH (11:00)
[2021-11-09] MEDS: SERTRALINE 25 MG TAB PO SCH (12:43)
--- NOTE | 2021-11-09 15:18 | Event Note ---
Date: 11/09/21 The patient was evaluated in the emergency department for symptoms described in the history of present illness. He/she was evaluated in the context of the global COVID-19 pandemic, which necessitated consideration that the patient might be at risk for infection with the virus that causes COVID-19. Institutional protocols and algorithms that pertain to the evaluation of patients at risk for COVID-19 are in a state of rapid change based on information released by regulatory bodies including the CDC and federal and state organizations. These policies and algorithms were followed during the patient's care in the emergency department. Please note that these policies, procedures and recommendations changed on a rapid basis. Laboratory studies, vital signs, nursing documentation, ER documentation, and psychiatric documentation are reviewed and appreciated. Nursing team reports no acute events this morning or concerns. The patient is awake and ambulating and does not appear to be in any acute distress. The patient was deemed medically suitable for psychiatric disposition and placement during his initial ER evaluation. The patient continues to remain medically suitable for psychiatric placement and disposition. He is currently pending psychiatric placement. Vital Signs 11/07/21 11/07/21 11/07/21 20:17 21:01 21:15 Temperature 99.1 F Pulse Rate 124 H 109 H 100 H Respiratory 18 19 21 Rate Blood Pressure 149/106 135/99 121/89 Blood Pressure 121/89 [Left] O2 Sat by Pulse 98 95 96 Oximetry 11/07/21 11/07/21 11/07/21 21:31 21:45 22:01 Temperature Pulse Rate 99 H 93 H 93 H Respiratory 23 21 21 Rate Blood Pressure 124/91 128/91 125/85 Blood Pressure [Left] O2 Sat by Pulse 93 95 94 Oximetry 11/07/21 11/07/21 11/07/21 22:15 22:31 22:45 Temperature Pulse Rate 99 H 96 H 93 H Respiratory 19 20 19 Rate Blood Pressure 130/88 135/88 137/99 Blood Pressure [Left] O2 Sat by Pulse 94 95 97 Oximetry 11/07/21 11/07/21 11/07/21 23:01 23:15 23:31 Temperature Pulse Rate 91 H 94 H 98 H Respiratory 17 17 17 Rate Blood Pressure 147/95 151/85 122/77 Blood Pressure [Left] O2 Sat by Pulse 96 96 95 Oximetry 05/04/22 05/05/22 05/05/22 23:45 00:01 00:15 Temperature Pulse Rate 99 H 97 H 96 H Respiratory 16 17 21 Rate Blood Pressure 131/76 116/76 117/81 Blood Pressure [Left] O2 Sat by Pulse 95 95 Oximetry 11/08/21 11/08/21 11/08/21 00:31 00:52 01:06 Temperature Pulse Rate 97 H Respiratory 15 Rate Blood Pressure 131/92 124/97 141/90 Blood Pressure [Left] O2 Sat by Pulse Oximetry 11/08/21 11/08/21 11/08/21 01:21 01:36 01:51 Temperature Pulse Rate Respiratory Rate Blood Pressure 134/86 130/82 121/85 Blood Pressure [Left] O2 Sat by Pulse Oximetry 11/08/21 11/08/21 11/08/21 02:06 02:21 02:36 Temperature Pulse Rate Respiratory Rate Blood Pressure 127/83 140/91 123/90 Blood Pressure [Left] O2 Sat by Pulse Oximetry 11/08/21 11/08/21 11/08/21 02:51 06:00 06:16 Temperature Pulse Rate 106 H 99 H Respiratory 13 18 Rate Blood Pressure 126/83 160/115 88/66 Blood Pressure [Left] O2 Sat by Pulse 97 94 Oximetry 11/08/21 11/08/21 11/08/21 06:30 06:46 07:00 Temperature Pulse Rate 101 H 106 H 103 H Respiratory 16 16 15 Rate Blood Pressure 88/66 88/66 88/66 Blood Pressure [Left] O2 Sat by Pulse 94 94 94 Oximetry 11/08/21 11/08/21 11/08/21 07:16 07:30 07:46 Temperature Pulse Rate 103 H 101 H 86 Respiratory 19 16 15 Rate Blood Pressure 147/103 147/103 147/103 Blood Pressure [Left] O2 Sat by Pulse 93 95 96 Oximetry 11/08/21 11/08/21 11/08/21 08:00 08:16 08:30 Temperature Pulse Rate 92 H 103 H 102 H Respiratory 19 17 17 Rate Blood Pressure 124/64 124/64 124/64 Blood Pressure [Left] O2 Sat by Pulse 94 93 93 Oximetry 11/08/21 11/08/21 11/08/21 08:46 09:00 09:16 Temperature Pulse Rate Respiratory 13 16 18 Rate Blood Pressure 124/64 161/115 161/115 Blood Pressure [Left] O2 Sat by Pulse 94 96 93 Oximetry 11/08/21 11/08/21 11/08/21 09:30 09:46 10:00 Temperature Pulse Rate Respiratory 21 10 L 13 Rate Blood Pressure 161/115 161/115 163/134 Blood Pressure [Left] O2 Sat by Pulse 94 97 97 Oximetry 11/08/21 11/08/21 11/08/21 10:16 10:30 10:46 Temperature Pulse Rate Respiratory 11 L 17 14 Rate Blood Pressure 163/134 163/134 163/134 Blood Pressure [Left] O2 Sat by Pulse 95 95 92 Oximetry 11/08/21 11/08/21 11/08/21 11:00 11:16 11:30 Temperature Pulse Rate Respiratory 14 Rate Blood Pressure 153/78 153/78 153/78 Blood Pressure [Left] O2 Sat by Pulse 93 94 95 Oximetry 11/08/21 11/08/21 11/08/21 11:49 12:00 12:16 Temperature Pulse Rate 96 H 105 H Respiratory 21 Rate Blood Pressure 153/78 134/112 134/112 Blood Pressure [Left] O2 Sat by Pulse 92 98 Oximetry 11/08/21 11/08/21 11/08/21 12:36 12:37 12:46 Temperature Pulse Rate 113 H 117 H Respiratory 18 Rate Blood Pressure 160/99 160/99 Blood Pressure 120/79 [Left] O2 Sat by Pulse 95 99 92 Oximetry 11/08/21 11/08/21 11/08/21 13:00 13:18 13:30 Temperature Pulse Rate 99 H Respiratory 20 Rate Blood Pressure 147/88 147/88 109/77 Blood Pressure [Left] O2 Sat by Pulse 90 89 87 Oximetry 11/08/21 11/08/21 11/08/21 13:52 14:01 14:16 Temperature Pulse Rate Respiratory Rate Blood Pressure 109/77 109/77 109/77 Blood Pressure [Left] O2 Sat by Pulse 99 60 L Oximetry 11/08/21 11/08/21 11/08/21 14:30 14:54 15:00 Temperature Pulse Rate Respiratory Rate Blood Pressure 109/77 109/77 109/77 Blood Pressure [Left] O2 Sat by Pulse 71 L Oximetry 11/08/21 11/08/21 11/08/21 15:15 17:35 17:46 Temperature Pulse Rate 95 H Respiratory 14 Rate Blood Pressure 109/77 109/77 Blood Pressure [Left] O2 Sat by Pulse 94 94 Oximetry 11/08/21 11/08/21 11/08/21 18:00 18:30 18:46 Temperature Pulse Rate 94 H 97 H Respiratory 14 21 Rate Blood Pressure 134/81 134/81 134/81 Blood Pressure [Left] O2 Sat by Pulse 94 96 96 Oximetry 11/08/21 11/08/21 11/08/21 19:00 19:16 19:30 Temperature Pulse Rate Respiratory Rate Blood Pressure 134/81 134/81 134/81 Blood Pressure [Left] O2 Sat by Pulse 94 94 94 Oximetry 11/08/21 11/08/21 11/08/21 19:46 20:00 20:16 Temperature Pulse Rate Respiratory Rate Blood Pressure 134/81 134/81 134/81 Blood Pressure [Left] O2 Sat by Pulse 94 94 94 Oximetry 11/08/21 11/08/21 11/08/21 20:30 20:46 21:00 Temperature Pulse Rate Respiratory Rate Blood Pressure 134/81 134/81 95/46 Blood Pressure [Left] O2 Sat by Pulse 92 94 94 Oximetry 11/08/21 11/08/21 11/08/21 21:16 21:30 21:46 Temperature Pulse Rate Respiratory Rate Blood Pressure Blood Pressure [Left] O2 Sat by Pulse 93 95 95 Oximetry 11/08/21 11/08/21 11/08/21 22:00 22:16 22:30 Temperature Pulse Rate Respiratory Rate Blood Pressure Blood Pressure [Left] O2 Sat by Pulse 95 96 94 Oximetry 11/08/21 11/08/21 11/08/21 22:46 23:00 23:16 Temperature Pulse Rate Respiratory Rate Blood Pressure Blood Pressure [Left] O2 Sat by Pulse 88 94 94 Oximetry 11/08/21 11/08/21 11/09/21 23:30 23:46 00:00 Temperature Pulse Rate Respiratory Rate Blood Pressure Blood Pressure [Left] O2 Sat by Pulse 94 92 95 Oximetry 11/09/21 11/09/21 11/09/21 00:16 00:30 00:46 Temperature Pulse Rate Respiratory Rate Blood Pressure Blood Pressure [Left] O2 Sat by Pulse 92 94 94 Oximetry 11/09/21 11/09/21 11/09/21 01:00 01:16 01:30 Temperature Pulse Rate Respiratory Rate Blood Pressure Blood Pressure [Left] O2 Sat by Pulse 95 92 92 Oximetry 11/09/21 11/09/21 11/09/21 01:46 02:00 02:16 Temperature Pulse Rate Respiratory Rate Blood Pressure 44/18 44/18 Blood Pressure [Left] O2 Sat by Pulse 96 92 96 Oximetry 11/09/21 11/09/21 11/09/21 02:30 02:46 03:00 Temperature Pulse Rate Respiratory Rate Blood Pressure 44/18 44/18 44/18 Blood Pressure [Left] O2 Sat by Pulse 95 94 90 Oximetry 11/09/21 11/09/21 11/09/21 03:16 03:30 03:46 Temperature Pulse Rate Respiratory Rate Blood Pressure 44/18 44/18 44/18 Blood Pressure [Left] O2 Sat by Pulse 92 94 93 Oximetry 11/09/21 11/09/21 11/09/21 03:57 04:00 04:02 Temperature 98.3 F Pulse Rate 80 Respiratory 16 Rate Blood Pressure 148/97 Blood Pressure 109/88 [Left] O2 Sat by Pulse 98 96 98 Oximetry 11/09/21 11/09/21 11/09/21 04:16 04:30 04:46 Temperature Pulse Rate Respiratory Rate Blood Pressure 148/97 148/97 148/97 Blood Pressure [Left] O2 Sat by Pulse 92 94 95 Oximetry 11/09/21 11/09/21 11/09/21 05:00 05:16 05:30 Temperature Pulse Rate Respiratory Rate Blood Pressure 156/105 156/105 156/105 Blood Pressure [Left] O2 Sat by Pulse 96 89 94 Oximetry 11/09/21 11/09/21 11/09/21 05:46 06:00 06:16 Temperature Pulse Rate Respiratory Rate Blood Pressure 156/105 146/109 146/109 Blood Pressure [Left] O2 Sat by Pulse 88 94 94 Oximetry 11/09/21 11/09/21 11/09/21 06:30 06:46 06:55 Temperature 98.6 F Pulse Rate 80 Respiratory 16 Rate Blood Pressure 146/109 146/109 Blood Pressure 134/88 [Left] O2 Sat by Pulse 89 94 97 Oximetry Lab Results 11/07/21 11/07/21 11/07/21 Range/Units 21:06 21:06 21:06 WBC 9.6 (4.5-11.0) K/mm3 RBC 4.77 (3.65-5.03) M/mm3 Hgb 16.1 H (11.8-15.2) gm/dl Hct 48.0 H (35.5-45.6) % MCV 101 H (84-94) fl MCH 34 H (28-32) pg MCHC 34 (32-34) % RDW 13.4 (13.2-15.2) % Plt Count 280 (140-440) K/mm3 Lymph % (Auto) 34.0 (13.4-35.0) % Hind[place] % (Auto) 7.4 H (0.0-7.3) % Eos % (Auto) 1.3 (0.0-4.3) % Baso % (Auto) 0.6 (0.0-1.8) % Lymph # (Auto) 3.3 (1.2-5.4) K/mm3 [place] # (Auto) 0.7 (0.0-0.8) K/mm3 Eos # (Auto) 0.1 (0.0-0.4) K/mm3 Baso # (Auto) 0.1 (0.0-0.1) K/mm3 Seg Neutrophils % 56.7 (40.0-70.0) % Seg Neutrophils # 5.5 (1.8-7.7) K/mm3 Sodium 140 (137-145) mmol/L Potassium 3.4 L D (3.6-5.0) mmol/L Chloride 103.3 (98-107) mmol/L Carbon Dioxide 23 (22-30) mmol/L Anion Gap 17 mmol/L BUN 14 (9-20) mg/dL Creatinine 1.0 (0.8-1.3) mg/dL Estimated GFR > 60 ml/min BUN/Creatinine Ratio 14 % Glucose 115 H (75-100) mg/dL Calcium 9.4 (8.4-10.2) mg/dL Total Bilirubin 0.30 (0.1-1.2) mg/dL AST 21 (5-40) units/L ALT 29 (7-56) units/L Alkaline Phosphatase 104 (35-129) units/L Total Protein 7.5 (6.3-8.2) g/dL Albumin 4.4 (3.9-5) g/dL Albumin/Globulin Ratio 1.4 % Urine Color (Yellow) Urine Turbidity (Clear) Urine pH (5.0-7.0) Ur Specific [place] (1.003-1.030) Urine Protein (Negative) mg/dL Urine Glucose (UA) (Negative) mg/dL Urine Ketones (Negative) mg/dL Urine Blood (Negative) Urine Nitrite (Negative) Urine Bilirubin (Negative) Urine Urobilinogen (<2.0) mg/dL Ur Leukocyte Esterase (Negative) Urine WBC (Auto) (0.0-6.0) /HPF Urine RBC (Auto) (0.0-6.0) /HPF Urine Mucus /HPF Salicylates (2.8-20.0) mg/dL Urine Opiates Screen Urine Methadone Screen Acetaminophen (10.0-30.0) ug/mL Ur Barbiturates Screen Ur Phencyclidine Scrn Ur Amphetamines Screen U Benzodiazepines Scrn Urine Cocaine Screen U Marijuana (THC) Screen Drugs of Abuse Note Plasma/Serum Alcohol 0.25 H (0-0.07) % 11/08/21 11/08/21 11/08/21 Range/Units 08:03 08:03 12:26 WBC (4.5-11.0) K/mm3 RBC (3.65-5.03) M/mm3 Hgb (11.8-15.2) gm/dl Hct (35.5-45.6) % MCV (84-94) fl MCH (28-32) pg MCHC (32-34) % RDW (13.2-15.2) % Plt Count (140-440) K/mm3 Lymph % (Auto) (13.4-35.0) % Hind[place] % (Auto) (0.0-7.3) % Eos % (Auto) (0.0-4.3) % Baso % (Auto) (0.0-1.8) % Lymph # (Auto) (1.2-5.4) K/mm3 [place] # (Auto) (0.0-0.8) K/mm3 Eos # (Auto) (0.0-0.4) K/mm3 Baso # (Auto) (0.0-0.1) K/mm3 Seg Neutrophils % (40.0-70.0) % Seg Neutrophils # (1.8-7.7) K/mm3 Sodium (137-145) mmol/L Potassium (3.6-5.0) mmol/L Chloride (98-107) mmol/L Carbon Dioxide (22-30) mmol/L Anion Gap mmol/L BUN (9-20) mg/dL Creatinine (0.8-1.3) mg/dL Estimated GFR ml/min BUN/Creatinine Ratio % Glucose (75-100) mg/dL Calcium (8.4-10.2) mg/dL Total Bilirubin (0.1-1.2) mg/dL AST (5-40) units/L ALT (7-56) units/L Alkaline Phosphatase (35-129) units/L Total Protein (6.3-8.2) g/dL Albumin (3.9-5) g/dL Albumin/Globulin Ratio % Urine Color Yellow (Yellow) Urine Turbidity Clear (Clear) Urine pH 5.0 (5.0-7.0) Ur Specific [place] 1.018 (1.003-1.030) Urine Protein <15 mg/dl (Negative) mg/dL Urine Glucose (UA) Neg (Negative) mg/dL Urine Ketones Neg (Negative) mg/dL Urine Blood Sm (Negative) Urine Nitrite Neg (Negative) Urine Bilirubin Neg (Negative) Urine Urobilinogen < 2.0 (<2.0) mg/dL Ur Leukocyte Esterase Neg (Negative) Urine WBC (Auto) < 1.0 (0.0-6.0) /HPF Urine RBC (Auto) 2.0 (0.0-6.0) /HPF Urine Mucus Few /HPF Salicylates < 0.3 L (2.8-20.0) mg/dL Urine Opiates Screen Negative Urine Methadone Screen Negative Acetaminophen (10.0-30.0) ug/mL Ur Barbiturates Screen Negative Ur Phencyclidine Scrn Negative Ur Amphetamines Screen Negative U Benzodiazepines Scrn Negative Urine Cocaine Screen Negative U Marijuana (THC) Screen Positive Drugs of Abuse Note Disclamer Plasma/Serum Alcohol (0-0.07) % 11/08/21 Range/Units 12:26 WBC (4.5-11.0) K/mm3 RBC (3.65-5.03) M/mm3 Hgb (11.8-15.2) gm/dl Hct (35.5-45.6) % MCV (84-94) fl MCH (28-32) pg MCHC (32-34) % RDW (13.2-15.2) % Plt Count (140-440) K/mm3 Lymph % (Auto) (13.4-35.0) % Hind[place] % (Auto) (0.0-7.3) % Eos % (Auto) (0.0-4.3) % Baso % (Auto) (0.0-1.8) % Lymph # (Auto) (1.2-5.4) K/mm3 [place] # (Auto) (0.0-0.8) K/mm3 Eos # (Auto) (0.0-0.4) K/mm3 Baso # (Auto) (0.0-0.1) K/mm3 Seg Neutrophils % (40.0-70.0) % Seg Neutrophils # (1.8-7.7) K/mm3 Sodium (137-145) mmol/L Potassium (3.6-5.0) mmol/L Chloride (98-107) mmol/L Carbon Dioxide (22-30) mmol/L Anion Gap mmol/L BUN (9-20) mg/dL Creatinine (0.8-1.3) mg/dL Estimated GFR ml/min BUN/Creatinine Ratio % Glucose (75-100) mg/dL Calcium (8.4-10.2) mg/dL Total Bilirubin (0.1-1.2) mg/dL AST (5-40) units/L ALT (7-56) units/L Alkaline Phosphatase (35-129) units/L Total Protein (6.3-8.2) g/dL Albumin (3.9-5) g/dL Albumin/Globulin Ratio % Urine Color (Yellow) Urine Turbidity (Clear) Urine pH (5.0-7.0) Ur Specific [place] (1.003-1.030) Urine Protein (Negative) mg/dL Urine Glucose (UA) (Negative) mg/dL Urine Ketones (Negative) mg/dL Urine Blood (Negative) Urine Nitrite (Negative) Urine Bilirubin (Negative) Urine Urobilinogen (<2.0) mg/dL Ur Leukocyte Esterase (Negative) Urine WBC (Auto) (0.0-6.0) /HPF Urine RBC (Auto) (0.0-6.0) /HPF Urine Mucus /HPF Salicylates (2.8-20.0) mg/dL Urine Opiates Screen Urine Methadone Screen Acetaminophen 5.0 L (10.0-30.0) ug/mL Ur Barbiturates Screen Ur Phencyclidine Scrn Ur Amphetamines Screen U Benzodiazepines Scrn Urine Cocaine Screen U Marijuana (THC) Screen Drugs of Abuse Note Plasma/Serum Alcohol (0-0.07) %
[2021-11-09] MEDS: HALOPERIDOL LACTATE 5 MG/1 ML INJ IM PRN (19:03)
[2021-11-10] MEDS: LORazepam 2 MG/ML VIAL IM PRN ×4 (04:56→20:27)
[2021-11-10] MEDS: GABAPENTIN 100 MG CAP PO SCH ×3 (09:59→22:34)
[2021-11-10] MEDS: MULTIVITAMINS ,THERAPEUTIC TAB PO SCH (09:59)
[2021-11-10] MEDS: FOLIC ACID 1 MG TAB PO SCH (09:59)
[2021-11-10] MEDS: SERTRALINE 25 MG TAB PO SCH (09:59)
[2021-11-10] MEDS: POTASSIUM CHLORIDE ER 20 MEQ TAB PO SCH (09:59)
[2021-11-10] MEDS: HALOPERIDOL LACTATE 5 MG/1 ML INJ IM PRN (10:16)
--- NOTE | 2021-11-10 10:26 | Progress Note ---
Subjective - Reason for Consult Consult date: 11/10/21 Reason for consult: SI - Chief Complaint Chief complaint: The patient was seen today. He still endorses SI, but denies a plan. The patient says he is having tremors and feels sick. He drinks a 1/2 gal of alcohol daily. He says he relapsed, has no support because of the alcohol and has nothing to live for. He denies hallucinations. REVIEW OF SYSTEMS Constitutional: Negative for weight loss ENT: Negative for stridor Respiratory: Negative for cough or hemoptysis All other systems reviewed and are negative MENTAL STATUS EXAMINATION General Appearance and Behavior: Age appropriate, good hygiene, wearing appropriate clothes, poor eye contact, cooperative polite with questioning. Cooperation: Participating/engaged, guarded Psychomotor Behavior: unremarkable and within normal limits Mood: Depressed Affect and affective range: congruent with mood Thought Process: Goal directed Thought Content: Suicidal, hopelessness Speech: Normal volume, Regular rate and rhythm, Intellectual Functioning: Average Suicidal Ideation: Yes Homicidal Ideation: Denies Hallucinations: Denies Delusions: None Impulse Control: Normal Insight and Judgment: Limited insight and judgment, Memory: Normal, Attention: Normal, Orientation: Alert, oriented, Assessment and Plan (1) Major depressive disorder (2) Alcohol use disorder Current Visit: Yes Status: Acute Treatment 1013 Start Vistaril 50mg po BID Increase Zoloft 50mg po daily Continue CIWA protocol Sitter: Per primary Medical: Per primary Disposition: Recommend acute inpatient psychiatric treatment. Will follow. Thanks Case staffed with Dr. Bailey Mental Status Exam - Vital signs Last Vital Signs Temp 97.2 F L 11/10/21 09:40 Pulse 70 11/10/21 09:40 Resp 16 11/10/21 09:40 BP 121/79 11/10/21 09:40 Pulse Ox 100 11/10/21 09:40
--- NOTE | 2021-11-10 13:00 | Event Note ---
Date: 11/10/21 Mr. Aldana was seen today and evaluated with no acute report. Patient denies any suicidal ideation to me. He also told me that he would like to be discharged home today. He said he just wanted his medication and is ready to go home. I have this patient several times about suicide and he continues to deny to me. Patient was seen by psychiatric this morning and it was reported that patient continue to and patient was placed on 1013. We will continue to monitor this patient progress throughout the day. Nursing team did not report any issue to me as well.
[2021-11-10] MEDS ORDERED: hydrOXYzine PAMOATE 25 MG CAP ONE (14:50)
--- NOTE | 2021-11-11 09:51 | Progress Note ---
Subjective - Reason for Consult Consult date: 11/11/21 Reason for consult: SI - Chief Complaint Chief complaint: The patient was seen today. He is walking the [place]. He is asking for a shower and says he feels anxious because he was told he could go home last night. The patient says "I feel so much better. They gave me resources for snf." He says "I told you that's why I was suicidal because I didn't have anywhere to go. He says I'm fine now." The patient denies hallucinations of any kind. REVIEW OF SYSTEMS Constitutional: Negative for weight loss ENT: Negative for stridor Respiratory: Negative for cough or hemoptysis All other systems reviewed and are negative MENTAL STATUS EXAMINATION General Appearance and Behavior: Age appropriate, good hygiene, wearing appropriate clothes, poor eye contact, cooperative polite with questioning. Cooperation: Participating/engaged, guarded Psychomotor Behavior: unremarkable and within normal limits Mood: better Affect and affective range: congruent with mood Thought Process: Goal directed Thought Content: Suicidal, hopelessness Speech: Normal volume, Regular rate and rhythm, Intellectual Functioning: Average Suicidal Ideation: Denies Homicidal Ideation: Denies Hallucinations: Denies Delusions: None elicited Impulse Control: Normal Insight and Judgment: Limited insight and judgment, Memory: Normal, Attention: Normal, Orientation: Alert, oriented, Assessment and Plan (1) Major depressive disorder (2) Alcohol use disorder Current Visit: Yes Status: Acute Treatment d/c 1013 Vistaril 50mg po BID prn anxiety Zoloft 50mg po daily Sitter: Per primary Medical: Per primary Disposition: Do not recommend acute inpatient psychiatric treatment. The patient understands that if SI/HI arise he is to seek immediate assistance The supervisor rose grading to give the patient all outpatient resources including snf and alcohol rehab He is to abstain from alcohol Please give this patient a transportation pass He is to follow up with outpatient psych in 7 to 14 days upon discharge Will sign off. Thanks Case staffed with Dr. Bailey Mental Status Exam - Vital signs Last Vital Signs Temp 97.2 F L 11/10/21 09:40 Pulse 100 H 11/10/21 20:22 Resp 18 11/11/21 09:03 BP 144/115 11/10/21 20:22 Pulse Ox 98 11/11/21 09:03
[2021-11-11] MEDS ORDERED: SERTRALINE 50 MG TAB PO SCH (10:00)
[2021-11-11] MEDS: FOLIC ACID 1 MG TAB PO SCH (10:54)
[2021-11-11] MEDS: MULTIVITAMINS ,THERAPEUTIC TAB PO SCH (10:55)
[2021-11-11] MEDS: POTASSIUM CHLORIDE ER 20 MEQ TAB PO SCH (10:55)
[2021-11-11] MEDS: GABAPENTIN 100 MG CAP PO SCH (10:55)
--- NOTE | 2021-11-11 11:40 | Event Note ---
Date: 11/11/21 Mr. Aldana reports feeling much better this morning he was all smiling. I also round on him yesterday and he was able to recognize me. Informed me that he has been discharged by the psychiatrist and ready to go home. Patient was seen by psychiatrist this morning and discharged home to continue his home medication Zoloft and Vistaril. He denies any suicide or homicidal ideation. No other modifying or positive factors reported.
[2021-11-11 18:30] VITALS: BP 160/88
== END 2021-11-11 18:28 | disposition home or self-care (01) ==
LOC: ED 20:00
DX: F10.10 Alcohol abuse, uncomplicated (principal); F32.A Depression, unspecified; F17.200 Nicotine dependence, unspecified, uncomplicated; Z20.822 Contact with and (suspected) exposure to COVID-19
CPT/HCPCS: 36415; 80053; 80307; 81001; 85025; 96361; 96372; 96374; 96376; 99285; J1630; J2060; J7030; Q0177; U0003; 80320; G0480

== ENCOUNTER 2021-11-18 11:19 | Emergency (ER) | payer SELFPAY ==
[2021-11-18 11:33] VITALS: BP 135/81
== END 2021-11-18 11:45 | disposition left against medical advice (07) ==
LOC: ED 11:19
DX: R56.9 Unspecified convulsions (principal); Z53.21 Procedure and treatment not carried out due to patient leaving prior to being seen by health care provider

== ENCOUNTER 2021-11-19 01:52 | Emergency (ER) | payer SELFPAY ==
[2021-11-19] MEDS ORDERED: ONDANSETRON 4 MG/2 ML INJ IV ONE ×2 (02:38→10:17)
[2021-11-19] MEDS ORDERED: SODIUM CHLORIDE 0.9% 1000 ML 1,000 ML IV ONE (02:39)
--- NOTE | 2021-11-19 02:43 | Emergency Department Report ---
ED General Adult HPI - General Chief complaint: Medical Clearance Stated complaint: DETOX Time Seen by Provider: 11/19/21 02:20 Source: patient Mode of arrival: Ambulatory Limitations: No Limitations - History of Present Illness Initial comments: Patient presents with complaints of middle upper abdominal pain, sharp, non radiating, 7/10, not worsened or relieved by anything. Endorses nausea, non bloody, non bilious vomiting. Last BM was today and formed. Endorses flatulence. Denies dysuria, frequency, urgency. States he has been binge drinking. Has a hx of depression and has been having suicidal thoughts. Does not have a plan. - Related Data Previous Rx's Medication Instructions Recorded Last Taken Type Sertraline [Zoloft] 50 mg PO QDAY #30 11/11/21 Unknown Rx hydrOXYzine PAMOATE [Vistaril] 50 mg PO BID PRN #60 capsule 11/11/21 Unknown Rx Allergies Allergy/AdvReac Type Severity Reaction Status Date / Time No Known Allergies Allergy Verified 11/06/21 06:56 ED Review of Systems ROS: Stated complaint: DETOX Other details as noted in HPI Comment: All other systems reviewed and negative Constitutional: denies: chills, fever ED Past Medical Hx - Past Medical History Previous Medical History?: Yes Additional medical history: Pancreatitis. ETOH abuse. seizures from ETOH withdrawal - Surgical History Past Surgical History?: Yes - Social History Smoking Status: Light Tobacco Smoker Substance Use Type: Alcohol - Medications Home Medications: Home Medications Medication Instructions Recorded Confirmed Last Taken Type Sertraline [Zoloft] 50 mg PO QDAY #30 11/11/21 Unknown Rx hydrOXYzine PAMOATE [Vistaril] 50 mg PO BID PRN #60 capsule 11/11/21 Unknown Rx ED Physical Exam - General Limitations: No Limitations General appearance: alert, in no apparent distress - Head Head exam: Present: atraumatic, normocephalic - Eye Eye exam: Present: PERRL, EOMI - ENT ENT exam: Present: mucous membranes moist, other (airway patent) - Neck Neck exam: Present: other (supple; no JVD) - Respiratory Respiratory exam: Present: other (good air entry, nml I:E, CTAB no use of JOHN) - Cardiovascular Cardiovascular Exam: Present: regular rate. Absent: rubs, gallop - GI/Abdominal GI/Abdominal exam: Present: other (soft; tender to palpation in epigastic re gion; no rebound tenderness or involuntary guarding) - Extremities Exam Extremities exam: Present: full ROM. Absent: tenderness - Back Exam Back exam: Present: full ROM. Absent: CVA tenderness (R), CVA tenderness (L) - Neurological Exam Neurological exam: Present: alert, oriented X3, CN II-XII intact. Absent: motor sensory deficit - Psychiatric Psychiatric exam: Present: flat affect, suicidal ideation. Absent: homicidal ideation - Skin Skin exam: Present: other (erythema with seborrhea in perioral and perinasal areas) ED Course Vital Signs 11/19/21 01:55 Temperature 98.9 F Pulse Rate 113 H Respiratory 18 Rate Blood Pressure 135/81 O2 Sat by Pulse 100 Oximetry ED Medical Decision Making - Lab Data Result diagrams: 11/19/21 02:49 11/19/21 02:49 Laboratory Tests 11/19/21 11/19/21 11/19/21 02:49 02:49 02:49 WBC 7.3 RBC 4.76 Hgb 15.9 H Hct 47.1 H MCV 99 H MCH 34 H MCHC 34 RDW 13.6 Plt Count 275 Lymph % (Auto) 28.7 [place] % (Auto) 9.0 H Eos % (Auto) 1.3 Baso % (Auto) 0.8 Lymph # (Auto) 2.1 [place] # (Auto) 0.7 Eos # (Auto) 0.1 Baso # (Auto) 0.1 Seg Neutrophils % 60.2 Seg Neutrophils # 4.5 Sodium 141 Potassium 3.7 Chloride 100.3 Carbon Dioxide 28 Anion Gap 16 BUN 13 Creatinine 0.9 Estimated GFR > 60 BUN/Creatinine Ratio 14 Glucose 139 H Calcium 8.9 Total Bilirubin 0.40 AST 65 H ALT 116 H Alkaline Phosphatase 96 Total Protein 7.3 Albumin 4.1 Albumin/Globulin Ratio 1.3 Lipase 12 L Urine Color Urine Turbidity Urine pH Ur Specific [place] Urine Protein Urine Glucose (UA) Urine Ketones Urine Blood Urine Nitrite Urine Bilirubin Urine Urobilinogen Ur Leukocyte Esterase Urine WBC (Auto) Urine RBC (Auto) U Epithel Cells (Auto) Urine Mucus Salicylates < 0.3 L Acetaminophen U Benzodiazepines Scrn U Marijuana (THC) Screen Plasma/Serum Alcohol 11/19/21 11/19/21 11/19/21 02:49 02:49 05:24 WBC RBC Hgb Hct MCV MCH MCHC RDW Plt Count Lymph % (Auto) [place] % (Auto) Eos % (Auto) Baso % (Auto) Lymph # (Auto) [place] # (Auto) Eos # (Auto) Baso # (Auto) Seg Neutrophils % Seg Neutrophils # Sodium Potassium Chloride Carbon Dioxide Anion Gap BUN Creatinine Estimated GFR BUN/Creatinine Ratio Glucose Calcium Total Bilirubin AST ALT Alkaline Phosphatase Total Protein Albumin Albumin/Globulin Ratio Lipase Urine Color Yellow Urine Turbidity Clear Urine pH 7.0 Ur Specific [place] 1.018 Urine Protein <15 mg/dl Urine Glucose (UA) Neg Urine Ketones Neg Urine Blood Sm Urine Nitrite Neg Urine Bilirubin Neg Urine Urobilinogen < 2.0 Ur Leukocyte Esterase Neg Urine WBC (Auto) < 1.0 Urine RBC (Auto) 2.0 U Epithel Cells (Auto) < 1.0 Urine Mucus Few Salicylates Acetaminophen 5.0 L U Benzodiazepines Scrn U Marijuana (THC) Screen Plasma/Serum Alcohol 0.25 H 11/19/21 05:24 WBC RBC Hgb Hct MCV MCH MCHC RDW Plt Count Lymph % (Auto) [place] % (Auto) Eos % (Auto) Baso % (Auto) Lymph # (Auto) [place] # (Auto) Eos # (Auto) Baso # (Auto) Seg Neutrophils % Seg Neutrophils # Sodium Potassium Chloride Carbon Dioxide Anion Gap BUN Creatinine Estimated GFR BUN/Creatinine Ratio Glucose Calcium Total Bilirubin AST ALT Alkaline Phosphatase Total Protein Albumin Albumin/Globulin Ratio Lipase Urine Color Urine Turbidity Urine pH Ur Specific [place] Urine Protein Urine Glucose (UA) Urine Ketones Urine Blood Urine Nitrite Urine Bilirubin Urine Urobilinogen Ur Leukocyte Esterase Urine WBC (Auto) Urine RBC (Auto) U Epithel Cells (Auto) Urine Mucus Salicylates Acetaminophen U Benzodiazepines Scrn Presumptive positive U Marijuana (THC) Screen Presumptive positive Plasma/Serum Alcohol CT abd/pelvis: no acute inra-abdominal process - Medical Decision Making Patient medically cleared; 1013 signed. consulted. Critical care attestation.: If time is entered above; I have spent that time in minutes in the direct care of this critically ill patient, excluding procedure time. ED Disposition Clinical Impression: Alcohol intoxication, Suicidal thoughts, Epigastric pain Disposition: 30 STILL A PATIENT Is pt being admited?: No Does the pt Need Aspirin: No Condition: Stable Referrals: MARK RIOJAS MD [Primary Care Provider] - 3-5 Days Time of Disposition: 06:30 (Patient care transferred to Dr. Cortez )
[2021-11-19 03:11] LABS: Hematocrit 47.1 % (35.5-45.6); Hemoglobin 15.9 gm/dl (11.8-15.2); Mean Corpuscular HGB Conc 34 % (32-34); Mean Corpuscular Volume 99 fl (84-94); Platelet Count 275 K/mm3 (140-440); Red Blood Count 4.76 M/mm3 (3.65-5.03); Red Cell Distribution Width 13.6 % (13.2-15.2)
[2021-11-19 03:19] LABS: Basophils # (Auto) 0.1 K/mm3 (0.0-0.1); Basophils % (Auto) 0.8 % (0.0-1.8); Eosinophils # (Auto) 0.1 K/mm3 (0.0-0.4); Eosinophils % (Auto) 1.3 % (0.0-4.3); Lymphocytes # (Auto) 2.1 K/mm3 (1.2-5.4); Lymphocytes % (Auto) 28.7 % (13.4-35.0); Monocytes # (Auto) 0.7 K/mm3 (0.0-0.8)
[2021-11-19 04:11] LABS: Alanine Aminotransferase 116 units/L (7-56); Albumin 4.1 g/dL (3.9-5); BUN/Creatinine Ratio 14; Blood Urea Nitrogen 13 mg/dL (9-20); Calcium 8.9 mg/dL (8.4-10.2); Hemolysis Index 5
--- NOTE | 2021-11-19 05:05 | Cat Scan Report ---
CT abdomen pelvis w con INDICATION / CLINICAL INFORMATION: abd pain. TECHNIQUE: Axial CT images were obtained through the abdomen and pelvis after 100 cc of Omnipaque [address] scans at this location are performed using CT dose reduction for ALARA by means of automated exposure control. COMPARISON: 11/06/2021 FINDINGS: LOWER CHEST: No significant abnormality LIVER: No significant abnormality GALLBLADDER/BILIARY TREE: No significant abnormality PANCREAS: No significant abnormality SPLEEN: No significant abnormality ADRENALS: No significant abnormality RIGHT KIDNEY / URETER: No significant abnormality LEFT KIDNEY / URETER: No significant abnormality URINARY BLADDER: No significant abnormality REPRODUCTIVE ORGANS: No significant abnormality STOMACH / BOWEL: Small bowel is normal in caliber. The colon is unremarkable. The appendix is normal in caliber. LYMPH NODES: No significant adenopathy. VASCULATURE: No significant abnormality. OTHER: No free air, free fluid, or focal fluid collection is identified. SKELETAL SYSTEM: No acute osseous findings. IMPRESSION: No significant abnormality of the abdomen or pelvis. Signer Name: Micah Fair MD Signed: 11/19/2021 5:00 AM Workstation Name: [id number]
[2021-11-19 05:34] LABS: Bilirubin,Urine NEG (Negative); Blood,Urine SM (Negative); Color,Urine Yellow (Yellow); Mucus,Urine FEW /HPF; Protein,Urine <15 mg/dL mg/dL (Negative); Urobilinogen,Urine < 2.0 mg/dL (<2.0); WBC,Urine < 1.0 /HPF (0.0-6.0)
[2021-11-19 05:44] LABS: Amphetamine Screen,Urine PRESUMPTIVE NEGATIVE; Benzodiazepines Screen,Urine PRESUMPTIVE POSITIVE; Cannabinoid Screen,Urine PRESUMPTIVE POSITIVE; Cocaine Screen,Urine PRESUMPTIVE NEGATIVE; Methadone Screen,Urine PRESUMPTIVE NEGATIVE; Opiate Screen,Urine PRESUMPTIVE NEGATIVE
[2021-11-19 08:37] VITALS: BP 159/116
[2021-11-19] MEDS ORDERED: LORazepam 2 MG/ML VIAL IV PRN (08:48)
[2021-11-19] MEDS: LORazepam 2 MG/ML VIAL IV PRN ×2 (08:57→10:22)
[2021-11-19] MEDS ORDERED: NICOTINE 21 MG/24 HR PATCH TD ONE (09:57)
--- NOTE | 2021-11-19 11:45 | Emergency Department Report ---
Blank Doc - Documentation Documentation: S: No events reported overnight O: Vital Signs - 24 hr 11/19/21 11/19/21 11/19/21 01:55 04:00 08:35 Temperature 98.9 F Pulse Rate 113 H 78 74 Respiratory 18 18 18 Rate Blood Pressure 135/81 Blood Pressure 132/76 159/116 [Right] O2 Sat by Pulse 100 100 96 Oximetry A: Suicidal ideation P: Awaiting psych eval
--- NOTE | 2021-11-19 13:27 | Consultation ---
History of Present Illness - Reason for Consult Consult date: 11/19/21 Reason for consult: Mental health evaluation - History of Present Psychiatric Illness The patient is a 40 year old male with history of depression, anxiety, PTSD, alcohol use disorder. The patient is alert and oriented x3. The reports that he was placed at [facility] and has continued to consume alcohol. He endorses depression but denies any current suicidal/homicidal ideation and natan es hallucination. PAST PSYCHIATRIC HISTORY Diagnoses:Depression, Anxiety, PTSD, Alcohol use disorder Suicide attempts or Self-harm behavior: Denies Prior psychiatric hospitalizations: Yes Substance Abuse history:Alcohol Previous psychiatric medications tried: Unknown Outpatient treatment:unknown PAST MEDICAL HISTORY: none reported Family Psychiatric History: None reported or documented SOCIAL HISTORY Marital Status: Single Living Arrangements: Lives with sister Employment Status: Unemployed Access to guns/weapons: Denies Education: 8th grade History of Abuse: none reported Legal History: none reported REVIEW OF SYSTEMS Constitutional: Negative for weight loss ENT: Negative for stridor Respiratory: Negative for cough or hemoptysis All other systems reviewed and are negative MENTAL STATUS EXAMINATION General Appearance and Behavior: Age appropriate, good hygiene, wearing appropriate clothes, poor eye contact, cooperative polite with questioning. Cooperation: Participating/engaged, guarded Psychomotor Behavior: unremarkable and within normal limits Mood: Depressed Affect and affective range: congruent with mood Thought Process: Goal directed Thought Content: Reality oriented Speech: Normal volume, Regular rate and rhythm, Intellectual Functioning: Average Suicidal Ideation: Denies Homicidal Ideation: Denies Hallucinations: Denies Delusions: None Impulse Control: Normal Insight and Judgment: Limited insight and judgment, Memory: Normal, Attention: Normal, Orientation: Alert, oriented, Assessment and Plan (1) Major depressive disorder (2) Alcohol use disorder Current Visit: Yes Status: Acute Treatment DC 1013 Continue Home meds. Sitter: Per primary Medical: Per primary Disposition: Do not recommend acute inpatient psychiatric treatment. Insurance Licensing Supervisor will provide patient with psychiatric outpatient resources. Case staffed with Dr. Bailey Will sign off. Thank you Medications and Allergies Medications and Allergies Allergies Allergy/AdvReac Type Severity Reaction Status Date / Time No Known Allergies Allergy Verified 11/06/21 06:56 Home Medications Medication Instructions Recorded Confirmed Last Taken Type Sertraline [Zoloft] 50 mg PO QDAY #30 11/11/21 Unknown Rx hydrOXYzine PAMOATE [Vistaril] 50 mg PO BID PRN #60 capsule 11/11/21 Unknown Rx Active Meds: Active Medications Lorazepam (Lorazepam 2 Mg/Ml Vial) 2 mg IV Q1HR PRN PRN Reason: [facility] 8-15 Last Admin: 11/19/21 10:22 Dose: 2 mg Lorazepam (Lorazepam 2 Mg/Ml Vial) 4 mg IV Q1HR PRN PRN Reason: CIWA-Ar 16 Mental Status Exam - Vital signs Last Vital Signs Temp 98.9 F 11/19/21 01:55 Pulse 74 11/19/21 08:35 Resp 18 11/19/21 08:35 BP 159/116 11/19/21 08:35 Pulse Ox 96 11/19/21 08:35 Results Result Diagrams: 11/19/21 02:49 11/19/21 02:49 Abnormal lab results 11/19/21 11/19/21 11/19/21 Range/Units 02:49 02:49 02:49 Hgb 15.9 H (11.8-15.2) gm/dl Hct 47.1 H (35.5-45.6) % MCV 99 H (84-94) fl MCH 34 H (28-32) pg [place] % (Auto) 9.0 H (0.0-7.3) % Glucose 139 H (75-100) mg/dL AST 65 H (5-40) units/L ALT 116 H (7-56) units/L Lipase 12 L (13-60) units/L Salicylates < 0.3 L (2.8-20.0) mg/dL Acetaminophen (10.0-30.0) ug/mL Plasma/Serum Alcohol (0-0.07) % 11/19/21 11/19/21 Range/Units 02:49 02:49 Hgb (11.8-15.2) gm/dl Hct (35.5-45.6) % MCV (84-94) fl MCH (28-32) pg [place] % (Auto) (0.0-7.3) % Glucose (75-100) mg/dL AST (5-40) units/L ALT (7-56) units/L Lipase (13-60) units/L Salicylates (2.8-20.0) mg/dL Acetaminophen 5.0 L (10.0-30.0) ug/mL Plasma/Serum Alcohol 0.25 H (0-0.07) % All other labs normal.
== END 2021-11-19 14:20 | disposition home or self-care (01) ==
LOC: ED 01:52
DX: F10.129 Alcohol abuse with intoxication, unspecified (principal); R45.851 Suicidal ideations; R10.13 Epigastric pain; Z20.822 Contact with and (suspected) exposure to COVID-19; Z79.899 Other long term (current) drug therapy; Z87.891 Personal history of nicotine dependence
CPT/HCPCS: 36415; 74177; 80053; 80307; 81001; 83690; 85025; 96361; 96374; 96375; 96376; 99285; J2060; J2405; J7030; Q9967; U0003; 80320; G0480

== ENCOUNTER 2021-12-26 09:37 | Emergency (ER) | payer SELFPAY ==
[2021-12-26] MEDS ORDERED: LORazepam 2 MG/ML VIAL IV PRN (10:46)
[2021-12-26] MEDS ORDERED: ONDANSETRON 4 MG/2 ML INJ IV ONE (10:46)
--- NOTE | 2021-12-26 11:07 | Emergency Department Report ---
HPI - General Chief Complaint: Alcohol Time Seen by Provider: 12/26/21 10:35 - HPI HPI: 41-year-old male presents to the emergency department with a complaint of alcohol withdrawal symptoms causing nausea, vomiting and generalized abdominal pain. Patient also complains of being diaphoretic and extremely shaky. He does have a history of alcohol dependence and last had a drink at 6 PM last night. The patient has a history of depression and admits to suicidal ideations with the plan to drink himself to . He denies any homicidal ideations, auditory or visual hallucinations. The patient does admit to having previous alcohol withdrawal seizures. He has not taken anything for symptoms prior to presentation. He has a past medical history of pancreatitis. He denies any fever, chest pain, lower extremity swelling, diarrhea. ED Past Medical Hx - Past Medical History Additional medical history: Pancreatitis. ETOH abuse. seizures from ETOH withdrawal - Social History Smoking Status: Former Smoker - Medications Home Medications: Home Medications Medication Instructions Recorded Confirmed Last Taken Type Sertraline [Zoloft] 50 mg PO QDAY #30 11/11/21 Unknown Rx hydrOXYzine PAMOATE [Vistaril] 50 mg PO BID PRN #60 capsule 11/11/21 Unknown Rx ED Review of Systems ROS: Stated complaint: ABDOMINAL PAIN Other details as noted in HPI Comment: All other systems reviewed and negative Constitutional: diaphoresis. denies: fever Eyes: denies: eye pain, vision change ENT: denies: ear pain, throat pain Respiratory: denies: cough, shortness of breath Cardiovascular: denies: chest pain, palpitations Gastrointestinal: abdominal pain, nausea, vomiting Genitourinary: denies: dysuria, discharge Musculoskeletal: denies: back pain, joint swelling Skin: denies: rash, lesions Neurological: denies: headache, weakness Physical Exam - Physical Exam Vital Signs: Vital Signs 12/26/21 12/26/21 12/26/21 09:48 10:39 10:43 Temperature 98.2 F 98.8 F Pulse Rate 120 H 90 96 H Respiratory 15 11 L Rate Blood Pressure 168/134 Blood Pressure 193/171 168/134 [Left] O2 Sat by Pulse 99 100 98 Oximetry Physical Exam: GENERAL: The patient is well-developed well-nourished. HENT: Normocephalic. Atraumatic. Patient has moist mucous membranes. EYES: Extraocular motions are intact. Pupils equal reactive to light bilaterally. NECK: Supple. Trachea is midline. CHEST/LUNGS: Clear to auscultation. There is no respiratory distress noted. HEART/CARDIOVASCULAR: Regular. There is mild tachycardia. There is no murmur. ABDOMEN: Abdomen is soft, nontender. Patient has normal bowel sounds. There is no abdominal distention. SKIN: Skin is warm and dry. NEURO: The patient is awake, alert, and oriented. The patient is cooperative. The patient has no focal neurologic deficits. Normal speech. Cranial nerves II through XII grossly intact. The patient is tremulous. MUSCULOSKELETAL: There is no tenderness or deformity. There is no limitation range of motion. ED Course Vital Signs 12/26/21 12/26/21 12/26/21 09:48 10:39 10:43 Temperature 98.2 F 98.8 F Pulse Rate 120 H 90 96 H Respiratory 15 11 L Rate Blood Pressure 168/134 Blood Pressure 193/171 168/134 [Left] O2 Sat by Pulse 99 100 98 Oximetry ED Medical Decision Making - Lab Data Result diagrams: 12/26/21 10:55 12/26/21 11:30 Lab Results 12/26/21 12/26/21 12/26/21 Range/Units 09:57 10:55 10:55 WBC (4.5-11.0) K/mm3 RBC (3.65-5.03) M/mm3 Hgb (11.8-15.2) gm/dl Hct (35.5-45.6) % MCV (84-94) fl MCH (28-32) pg MCHC (32-34) % RDW (13.2-15.2) % Plt Count (140-440) K/mm3 Lymph % (Auto) (13.4-35.0) % [place] % (Auto) (0.0-7.3) % Eos % (Auto) (0.0-4.3) % Baso % (Auto) (0.0-1.8) % Lymph # (Auto) (1.2-5.4) K/mm3 [place] # (Auto) (0.0-0.8) K/mm3 Eos # (Auto) (0.0-0.4) K/mm3 Baso # (Auto) (0.0-0.1) K/mm3 Seg Neutrophils % (40.0-70.0) % Seg Neutrophils # (1.8-7.7) K/mm3 Sodium (137-145) mmol/L Potassium (3.6-5.0) mmol/L Chloride (98-107) mmol/L Carbon Dioxide (22-30) mmol/L Anion Gap mmol/L BUN (9-20) mg/dL Creatinine (0.8-1.3) mg/dL Estimated GFR ml/min BUN/Creatinine Ratio % Glucose (75-100) mg/dL POC Glucose 141 H (70-105) mg/dL Calcium (8.4-10.2) mg/dL Magnesium (1.7-2.3) mg/dL Total Bilirubin (0.1-1.2) mg/dL AST (5-40) units/L ALT (7-56) units/L Alkaline Phosphatase (35-129) units/L Total Protein (6.3-8.2) g/dL Albumin (3.9-5) g/dL Albumin/Globulin Ratio % Lipase (13-60) units/L Salicylates < 0.3 L (2.8-20.0) mg/dL Acetaminophen 5.0 L (10.0-30.0) ug/mL Plasma/Serum Alcohol (0-0.07) % 12/26/21 12/26/21 12/26/21 Range/Units 10:55 10:55 11:30 WBC 8.8 (4.5-11.0) K/mm3 RBC 4.77 (3.65-5.03) M/mm3 Hgb 15.9 H (11.8-15.2) gm/dl Hct 45.5 (35.5-45.6) % MCV 96 H (84-94) fl MCH 33 H (28-32) pg MCHC 35 H (32-34) % RDW 13.9 (13.2-15.2) % Plt Count 176 (140-440) K/mm3 Lymph % (Auto) 16.1 (13.4-35.0) % [place] % (Auto) 7.4 H (0.0-7.3) % Eos % (Auto) 0.1 (0.0-4.3) % Baso % (Auto) 0.3 (0.0-1.8) % Lymph # (Auto) 1.4 (1.2-5.4) K/mm3 [place] # (Auto) 0.6 (0.0-0.8) K/mm3 Eos # (Auto) 0.0 (0.0-0.4) K/mm3 Baso # (Auto) 0.0 (0.0-0.1) K/mm3 Seg Neutrophils % 76.1 H (40.0-70.0) % Seg Neutrophils # 6.7 (1.8-7.7) K/mm3 Sodium (137-145) mmol/L Potassium (3.6-5.0) mmol/L Chloride (98-107) mmol/L Carbon Dioxide (22-30) mmol/L Anion Gap mmol/L BUN (9-20) mg/dL Creatinine (0.8-1.3) mg/dL Estimated GFR ml/min BUN/Creatinine Ratio % Glucose (75-100) mg/dL POC Glucose (70-105) mg/dL Calcium (8.4-10.2) mg/dL Magnesium 1.50 L (1.7-2.3) mg/dL Total Bilirubin (0.1-1.2) mg/dL AST (5-40) units/L ALT (7-56) units/L Alkaline Phosphatase (35-129) units/L Total Protein (6.3-8.2) g/dL Albumin (3.9-5) g/dL Albumin/Globulin Ratio % Lipase (13-60) units/L Salicylates (2.8-20.0) mg/dL Acetaminophen (10.0-30.0) ug/mL Plasma/Serum Alcohol < 0.01 (0-0.07) % 12/26/21 Range/Units 11:30 WBC (4.5-11.0) K/mm3 RBC (3.65-5.03) M/mm3 Hgb (11.8-15.2) gm/dl Hct (35.5-45.6) % MCV (84-94) fl MCH (28-32) pg MCHC (32-34) % RDW (13.2-15.2) % Plt Count (140-440) K/mm3 Lymph % (Auto) (13.4-35.0) % [place] % (Auto) (0.0-7.3) % Eos % (Auto) (0.0-4.3) % Baso % (Auto) (0.0-1.8) % Lymph # (Auto) (1.2-5.4) K/mm3 [place] # (Auto) (0.0-0.8) K/mm3 Eos # (Auto) (0.0-0.4) K/mm3 Baso # (Auto) (0.0-0.1) K/mm3 Seg Neutrophils % (40.0-70.0) % Seg Neutrophils # (1.8-7.7) K/mm3 Sodium 135 L (137-145) mmol/L Potassium 3.7 (3.6-5.0) mmol/L Chloride 97.3 L (98-107) mmol/L Carbon Dioxide 23 (22-30) mmol/L Anion Gap 18 mmol/L BUN 13 (9-20) mg/dL Creatinine 0.7 L (0.8-1.3) mg/dL Estimated GFR > 60 ml/min BUN/Creatinine Ratio 19 % Glucose 112 H (75-100) mg/dL POC Glucose (70-105) mg/dL Calcium 9.9 (8.4-10.2) mg/dL Magnesium (1.7-2.3) mg/dL Total Bilirubin 1.90 H (0.1-1.2) mg/dL AST 47 H (5-40) units/L ALT 36 (7-56) units/L Alkaline Phosphatase 110 (35-129) units/L Total Protein 8.0 (6.3-8.2) g/dL Albumin 4.4 (3.9-5) g/dL Albumin/Globulin Ratio 1.2 % Lipase 17 (13-60) units/L Salicylates (2.8-20.0) mg/dL Acetaminophen (10.0-30.0) ug/mL Plasma/Serum Alcohol (0-0.07) % - Medical Decision Making This patient presents with alcohol withdrawal symptoms including agitation, tremors, nausea without vomiting, diaphoresis. He was placed on the CIWA protocol and his initial score was 17 and was given IV Ativan. This appears to have helped as he is currently calm and appropriate with improvement of his symptoms. Patient also complains of suicidal ideations partly related to his history of alcohol dependence and inability to successfully quit. He drinks to deal with the depression and his plan would be to drink himself to . For these reasons he has been placed on a 1013. He has been seen by behavioral health who agrees with the plan for a 1013 and inpatient stabilization. His labs have been mostly unremarkable including CBC, metabolic panel, blood alcohol level, urinalysis, except for some mild hypomagnesemia and very mild transaminitis from the AST level. The patient was given IV magnesium sulfate. He will remain on the CIWA protocol but at this time he appears medically cleared for psychiatric placement. We will monitor throughout his ED course. Critical Care Time: No Critical care attestation.: If time is entered above; I have spent that time in minutes in the direct care of this critically ill patient, excluding procedure time. ED Disposition Clinical Impression: Suicidal ideations Alcohol dependence Qualifiers: Substance use status: in withdrawal Complication of substance-induced condition : uncomplicated Qualified Code(s): F10.230 - Alcohol dependence with withdrawal, uncomplicated Alcohol withdrawal Qualifiers: Complication of substance-induced condition: uncomplicated Qualified Code(s): F10.230 - Alcohol dependence with withdrawal, uncomplicated Hypertension Qualifiers: Hypertension type: primary hypertension Qualified Code(s): I10 - Essential (primary) hypertension Disposition: 30 STILL A PATIENT Is pt being admited?: No Condition: Stable Instructions: Hypertension (ED) Time of Disposition: 14:34
[2021-12-26 11:17] LABS: Basophils % (Auto) 0.3 % (0.0-1.8); Eosinophils % (Auto) 0.1 % (0.0-4.3); Hematocrit 45.5 % (35.5-45.6); Hemoglobin 15.9 gm/dl (11.8-15.2); Lymphocytes # (Auto) 1.4 K/mm3 (1.2-5.4); Lymphocytes % (Auto) 16.1 % (13.4-35.0); Mean Corpuscular HGB Conc 35 % (32-34); Mean Corpuscular Volume 96 fl (84-94); Monocytes # (Auto) 0.6 K/mm3 (0.0-0.8); Monocytes % (Auto) 7.4 % (0.0-7.3); Platelet Count 176 K/mm3 (140-440); Red Blood Count 4.77 M/mm3 (3.65-5.03); Red Cell Distribution Width 13.9 % (13.2-15.2)
[2021-12-26] MEDS ORDERED: THIAMINE 100 MG, FOLIC ACID 1 MG, MULTIPLE VITAMIN INJ, ADULT 10 ML in SODIUM CHLORIDE ... IV ONE (11:30)
[2021-12-26 12:22] LABS: Alanine Aminotransferase 36 units/L (7-56); Albumin 4.4 g/dL (3.9-5); Blood Urea Nitrogen 13 mg/dL (9-20); Calcium 9.9 mg/dL (8.4-10.2); Hemolysis Index 22
[2021-12-26 12:27] LABS: BUN/Creatinine Ratio 19
[2021-12-26] MEDS ORDERED: MAGNESIUM SULFATE 1 GM in SODIUM CHLORIDE 0.9% 50 ML IV ONE (12:43)
--- NOTE | 2021-12-26 12:55 | Consultation ---
History of Present Illness - Reason for Consult Consult date: 12/26/21 Reason for consult: SI, ETOH dependence - History of Present Psychiatric Illness HPI: 41-year-old male presents to the emergency department with a complaint of alcohol withdrawal symptoms causing nausea, vomiting and generalized abdominal pain. Patient also complains of being diaphoretic and extremely shaky. He does have a history of alcohol dependence and last had a drink at 6 PM last night. The patient has a history of depression and admits to suicidal ideations with the plan to drink himself to . He denies any homicidal ideations, auditory or visual hallucinations. The patient does admit to having previous alcohol withdrawal seizures. He has not taken anything for symptoms prior to presentation. He has a past medical history of pancreatitis. He denies any fever, chest pain, lower extremity swelling, diarrhea. The patient was seen today. He endorses feeling suicidal with a plan to drink himself to . He says "I can't stop. I don't know what else to do. I need it." The patient says he is severely depressed because he can't quit drinking. He says "nothing is working. I don't know how to quit." He says he has been in multiple rehabs. He says he drinks to get rid of some of the depression. The patient says "I need help. If I don't get it, I'm gonna ." He denies hallucinations of any kind. Will start medications and recommend inpatient psych treatment with focus on rehab. PAST PSYCHIATRIC HISTORY Diagnoses:Depression, Anxiety, PTSD, Alcohol use disorder Suicide attempts or Self-harm behavior: Denies Prior psychiatric hospitalizations: Yes Substance Abuse history:Alcohol Previous psychiatric medications tried: Unknown Outpatient treatment:unknown PAST MEDICAL HISTORY: none reported Family Psychiatric History: None reported or documented SOCIAL HISTORY Marital Status: Single Living Arrangements: Lives with sister Employment Status: Unemployed Access to guns/weapons: Denies Education: 8th grade History of Abuse: none reported Legal History: none reported REVIEW OF SYSTEMS Constitutional: Negative for weight loss ENT: Negative for stridor Respiratory: Negative for cough or hemoptysis All other systems reviewed and are negative MENTAL STATUS EXAMINATION General Appearance and Behavior: Age appropriate, good hygiene, wearing appropriate clothes, poor eye contact, cooperative polite with questioning. Cooperation: Participating/engaged, guarded Psychomotor Behavior: unremarkable and within normal limits Mood: Depressed Affect and affective range: congruent with mood Thought Process: Goal directed Thought Content: Reality oriented Speech: Normal volume, Regular rate and rhythm, Intellectual Functioning: Average Suicidal Ideation: Yes Homicidal Ideation: Denies Hallucinations: Denies Delusions: None Impulse Control: Normal Insight and Judgment: Limited insight and judgment, Memory: Normal, Attention: Normal, Orientation: Alert, oriented, Assessment and Plan (1) Major depressive disorder (2) Alcohol Dependence Treatment 1013 Appreciate and agree with [facility] order Prozac 10mg po daily Doxepin 10mg po qhs Depakote DR 125mg po BID Continue Home meds. Sitter: Per primary Medical: Per primary Disposition: recommend acute inpatient psychiatric treatment. Will follow. Thanks Case staffed with Dr. Bailey Medications and Allergies Allergies Allergy/AdvReac Type Severity Reaction Status Date / Time No Known Allergies Allergy Verified 12/26/21 09:50 Home Medications Medication Instructions Recorded Confirmed Last Taken Type Sertraline [Zoloft] 50 mg PO QDAY #30 11/11/21 Unknown Rx hydrOXYzine PAMOATE [Vistaril] 50 mg PO BID PRN #60 capsule 11/11/21 Unknown Rx Active Meds: Active Medications Thiamine HCl 100 mg/ Folic Acid 1 mg/ Multivitamins/Minerals 10 ml/ Sodium Chloride 1,011.2 mls @ 250 mls/hr IV ONCE ONE Stop: 12/26/21 15:32 Last Admin: 12/26/21 11:55 Dose: 250 mls/hr Magnesium Sulfate 1 gm/ Sodium (Chloride) 52 mls @ 52 mls/hr IV ONCE ONE Stop: 12/26/21 13:42 Lorazepam (Lorazepam 2 Mg/Ml Vial) 2 mg IV Q1HR PRN PRN Reason: [facility]-Ar 8-15 Lorazepam (Lorazepam 2 Mg/Ml Vial) 4 mg IV Q1HR PRN PRN Reason: [facility]-Ar 16- Last Admin: 12/26/21 11:04 Dose: 4 mg Mental Status Exam - Vital signs Last Vital Signs Temp 98.8 F 12/26/21 10:43 Pulse 96 H 12/26/21 10:43 Resp 14 12/26/21 12:45 BP 168/134 12/26/21 10:43 Pulse Ox 98 12/26/21 12:45 Results Result Diagrams: 12/26/21 10:55 12/26/21 11:30 Abnormal lab results 12/26/21 12/26/21 12/26/21 Range/Units 09:57 10:55 10:55 Hgb (11.8-15.2) gm/dl MCV (84-94) fl MCH (28-32) pg MCHC (32-34) % [place] % (Auto) (0.0-7.3) % Seg Neutrophils % (40.0-70.0) % Sodium (137-145) mmol/L Chloride (98-107) mmol/L Creatinine (0.8-1.3) mg/dL Glucose (75-100) mg/dL POC Glucose 141 H (70-105) mg/dL Magnesium (1.7-2.3) mg/dL Total Bilirubin (0.1-1.2) mg/dL AST (5-40) units/L Salicylates < 0.3 L (2.8-20.0) mg/dL Acetaminophen 5.0 L (10.0-30.0) ug/mL 12/26/21 12/26/21 12/26/21 Range/Units 10:55 11:30 11:30 Hgb 15.9 H (11.8-15.2) gm/dl MCV 96 H (84-94) fl MCH 33 H (28-32) pg MCHC 35 H (32-34) % [place] % (Auto) 7.4 H (0.0-7.3) % Seg Neutrophils % 76.1 H (40.0-70.0) % Sodium 135 L (137-145) mmol/L Chloride 97.3 L (98-107) mmol/L Creatinine 0.7 L (0.8-1.3) mg/dL Glucose 112 H (75-100) mg/dL POC Glucose (70-105) mg/dL Magnesium 1.50 L (1.7-2.3) mg/dL Total Bilirubin 1.90 H (0.1-1.2) mg/dL AST 47 H (5-40) units/L Salicylates (2.8-20.0) mg/dL Acetaminophen (10.0-30.0) ug/mL All other labs normal.
[2021-12-26 15:51] LABS: Bilirubin,Urine NEG (Negative); Blood,Urine SM (Negative); Color,Urine Amber (Yellow)
[2021-12-26] MEDS: DIVALPROEX DR 125 MG TAB PO SCH ×2 (15:53→21:51)
[2021-12-26] MEDS: LORazepam 2 MG/ML VIAL IV PRN ×2 (15:55→19:37)
[2021-12-26] MEDS ORDERED: FLUoxetine 10 MG TAB PO SCH (16:00)
[2021-12-26 16:01] LABS: Mucus,Urine 2+ /HPF
[2021-12-26 16:07] LABS: Amphetamine Screen,Urine Negative; Benzodiazepines Screen,Urine Negative; Cocaine Screen,Urine Negative; Methadone Screen,Urine Negative; Opiate Screen,Urine Negative
[2021-12-26 16:22] LABS: Cannabinoid Screen,Urine Positive
[2021-12-26] MEDS ORDERED: DOXEPIN 10 MG CAP PO SCH (22:00)
[2021-12-27] MEDS ORDERED: LORazepam 1 MG TAB PO ONE (07:43)
--- NOTE | 2021-12-27 08:36 | Progress Note ---
Subjective - Reason for Consult Consult date: 12/27/21 Reason for consult: SI, ETOH - Chief Complaint Chief complaint: The patient was seen today. He says he is shaky, having headaches, and nausea. I have the nurse to give him Lorazepam based on CIWA score. The patient still endorses suicidal thoughts. He says "I can't be in the real world and make it. Yes, I'm suicidal." He denies hallucinations. The patient says he feels irritable and easily agitated. He says Haldol usually helps him. REVIEW OF SYSTEMS Constitutional: Negative for weight loss ENT: Negative for stridor Respiratory: Negative for cough or hemoptysis All other systems reviewed and are negative MENTAL STATUS EXAMINATION General Appearance and Behavior: Age appropriate, good hygiene, wearing appropriate clothes, poor eye contact, cooperative polite with questioning. Cooperation: Participating/engaged, guarded Psychomotor Behavior: unremarkable and within normal limits Mood: Depressed Affect and affective range: congruent with mood Thought Process: Goal directed Thought Content: Reality oriented Speech: Normal volume, Regular rate and rhythm, Intellectual Functioning: Average Suicidal Ideation: Yes Homicidal Ideation: Denies Hallucinations: Denies Delusions: None Impulse Control: Normal Insight and Judgment: Limited insight and judgment, Memory: Normal, Attention: Normal, Orientation: Alert, oriented, Assessment and Plan (1) Major depressive disorder (2) Alcohol Dependence Treatment 1013 Appreciate and agree with [facility] order Increase Prozac 20mg po daily Increase Doxepin 25mg po qhs Increase Depakote DR 125mg po TID Start Haldol 0.5mg po BID Sitter: Per primary Medical: Per primary Disposition: recommend acute inpatient psychiatric treatment. Will follow. Thanks Case staffed with Dr. Bailey Mental Status Exam - Vital signs Last Vital Signs Temp 98.4 F 12/26/21 20:16 Pulse 100 H 12/26/21 20:16 Resp 16 12/26/21 20:16 BP 158/112 12/26/21 20:16 Pulse Ox 96 12/26/21 20:16
[2021-12-27] MEDS: DIVALPROEX DR 125 MG TAB PO SCH ×3 (09:31→20:54)
[2021-12-27] MEDS: FLUoxetine 20 MG CAP PO SCH (09:31)
[2021-12-27] MEDS: HALOPERIDOL 1 MG TAB PO SCH ×2 (09:31→22:35)
--- NOTE | 2021-12-27 11:24 | Emergency Department Report ---
Blank Doc - Documentation Documentation: I saw this patient yesterday initially for alcohol withdrawal symptoms and abbi cidal ideations. There have been no signs of delirium tremens during his ED course as the patient has been on the CIWA protocol. Since the patient has been on the CIWA protocol. No new labs since yesterday except for patient negative for COVID-19. Seen again by behavioral health today and they still recommend inpatient stabilization secondary to suicidal ideations and they have titrated his psychiatric medications. We will continue to monitor this patient during his ED course.
[2021-12-27] MEDS ORDERED: DOXEPIN 25 MG CAP PO SCH (22:00)
[2021-12-28] MEDS: DIVALPROEX DR 125 MG TAB PO SCH ×2 (07:36→14:27)
[2021-12-28] MEDS: HALOPERIDOL 1 MG TAB PO SCH (09:52)
[2021-12-28] MEDS: FLUoxetine 20 MG CAP PO SCH (09:52)
[2021-12-28] MEDS ORDERED: LORazepam 1 MG TAB PO ONE (12:22)
[2021-12-28 14:32] VITALS: BP 160/102
== END 2021-12-28 15:28 ==
LOC: ED 09:37
DX: R45.851 Suicidal ideations (principal); F10.230 Alcohol dependence with withdrawal, uncomplicated; Z20.822 Contact with and (suspected) exposure to COVID-19; Z87.891 Personal history of nicotine dependence
CPT/HCPCS: 36415; 80053; 80307; 81001; 82962; 83690; 83735; 85025; 96365; 96366; 96368; 96375; 96376; 99285; J2060; J2405; J3411; J3475; J3490; J7030; Q0177; U0003; 80320; 99284; G0480